=== PATIENT | female | born 1945 | race Caucasian/White ===

== ENCOUNTER → 2021-05-05 | Outpatient (CLI) | payer MEDICARE, BC ==
--- NOTE | 2021-05-05 18:22 | XR ---
EXAMINATION TYPE: XR lumbosacral spine min 4V DATE OF EXAM: 05/05/2021 CLINICAL HISTORY: Chronic low back pain TECHNIQUE: Frontal, lateral, and oblique images of the lumbar spine are obtained. COMPARISON: CT abdomen/pelvis 11/05/2017 FINDINGS: Transitional lumbosacral anatomy with partial lumbarization of the S1 body. Vertebral body heights are maintained. Mild levoscoliotic curvature of the lumbar spine centered at t he level of L1-2. Multilevel degenerative disc changes with osteophyte formation, disc height loss, and endplate sclero sis most pronounced levels of L1-2, L2-3, and L3-4. Multilevel facet arthropathy most pronounced at L4-5 and L5-S1, which appears moderate. Mild degenerative changes of the bilateral sacroiliac joints. Prostatic calcifications of the abdominal aorta. Surgical clips overlie the right upper abdomen. IMPRESSION: Moderate to advanced multilevel degenerative changes of the lumbar spine.
--- NOTE | 2021-05-05 18:24 | XR ---
EXAMINATION TYPE: XR Hip Complete RT DATE OF EXAM: 05/05/2021 CLINICAL HISTORY: Pain TECHNIQUE: AP and frogleg views of the right hip are obtained. COMPARISON: None. FINDINGS: There is no acute fracture/dislocation evident in the right hip. Mild degenerative changes of the rig ht hip. The overlying soft tissue appears unremarkable. IMPRESSION: Mild degenerative changes of the right hip.
--- NOTE | 2021-05-05 18:25 | XR ---
EXAMINATION TYPE: XR knee complete RT DATE OF EXAM: 05/05/2021 CLINICAL HISTORY: Right knee pain TECHNIQUE: Three views of the right knee are obtained. COMPARISON: None. FINDINGS: There is no acute fracture/dislocation evident in right knee. Mild degenerative changes of the right knee with joint space narrowing and osteophyte formation involving the medial and patellof emoral compartments. Tiny right knee joint effusion. The overlying soft tissue appears unremarkable. IMPRESSION: Mild degenerative changes of the right knee.
== END | disposition home or self-care (01) ==
LOC: RADXRMAIN 15:36
PROVIDERS: ATTEND Family Medicine
DX: M51.36 Other intervertebral disc degeneration, lumbar region (principal); M17.11 Unilateral primary osteoarthritis, right knee; M16.11 Unilateral primary osteoarthritis, right hip
CPT/HCPCS: 72110; 73502

== ENCOUNTER 2021-12-02 04:37 | Observation (INO) | payer MEDICARE, BC ==
[2021-12-02] MEDS ORDERED: SODIUM CHLORIDE 0.9% 500 ML 500 ML IV STA (04:56)
[2021-12-02] MEDS ORDERED: ONDANSETRON 4 MG/2 ML VIAL IVP STA (04:56)
[2021-12-02] MEDS ORDERED: ASPIRIN 81 MG PO STA (05:12)
[2021-12-02] MEDS ORDERED: NITROGLYCERIN SL TABS 0.4 MG TAB SUBLINGUAL STA (05:12)
[2021-12-02] MEDS ORDERED: MORPHINE SULFATE 4 MG/ML SYRINGE IV STA (05:12)
[2021-12-02 05:56] LABS: Basophils % (A) 1 %; Eosinophils # (A) 0.1 k/uL (0-0.7); Eosinophils % (A) 2 %; HCT 40.4 % (34.0-46.0); HGB 13.1 gm/dL (11.4-16.0); Lymphocytes # (A) 1.1 k/uL (1.0-4.8); Lymphocytes % (A) 18 %; MCH 32.1 pg (25.0-35.0); MCHC 32.5 g/dL (31.0-37.0); MCV 98.8 fL (80.0-100.0); Mean Platelet Volume 9.2; Monocytes # (A) 0.5 k/uL (0-1.0); Monocytes % (A) 8 %; Neutrophils # (A) 4.3 k/uL (1.3-7.7); Neutrophils % (A) 70 %; Platelet Count 134 k/uL (150-450); RBC 4.09 m/uL (3.80-5.40); RDW 13.7 % (11.5-15.5); WBC 6.1 k/uL (3.8-10.6)
--- NOTE | 2021-12-02 06:01 | ED ---
Chest Pain HPI - General Chief Complaint: Abdominal Pain Stated Complaint: Abdominal Pain Time Seen by Provider: 12/02/21 04:56 Source: patient, EMS Mode of arrival: EMS Limitations: no limitations - History of Present Illness MD Complaint: chest pain -: days(s) Onset: during rest Pain Location: left chest, epigastric Pain Radiation: none Severity: mild Quality: aching Consistency: constant Improves With: nothing Worsens With: nothing Anginal Symptoms: diaphoresis Treatments Prior to Arrival: none - Related Data Home Medications Medication Instructions Recorded Confirmed Dicyclomine [Bentyl] 10 mg PO TID 02/01/14 12/02/21 Furosemide [Lasix] 20 mg PO BID 02/01/14 12/02/21 Levothyroxine Sodium [Synthroid] 50 mcg PO DAILY 02/01/14 12/02/21 Warfarin [Coumadin] 5 mg PO SUWE 02/01/14 12/02/21 traMADol HCl [Ultram] 50 mg PO QID PRN 02/01/14 12/02/21 Potassium Chloride [K-Tab ER] 10 meq PO DAILY 06/10/15 12/02/21 Mag/Aluminum/Sod Bicarb/Alginc 2 - 4 tab PO DAILY PRN 11/04/17 12/02/21 [Gaviscon 80-14.2 mg Tab Chew] Propranolol HCl 80 mg PO TID 11/04/17 12/02/21 Carboxymethylcellulose Sodium 1 drop BOTH EYES DAILY PRN 12/02/21 12/02/21 [Refresh Tears] Cholecalciferol [Vitamin D3 (25 25 mcg PO DAILY 12/02/21 12/02/21 Mcg = 1000 Iu)] Losartan Potassium 50 mg PO DAILY 12/02/21 12/02/21 Multivitamins, Thera [Multivitamin 1 tab PO DAILY 12/02/21 12/02/21 (formulary)] Pantoprazole Sodium [Protonix] 40 mg PO BID 12/02/21 12/02/21 Warfarin [Coumadin] 2.5 mg PO MOTUTHFRSA 12/02/21 12/02/21 Previous Rx's Medication Instructions Recorded Enoxaparin [Lovenox] 110 mg SQ Q12H 4 Days #8 each 12/04/21 Allergies Allergy/AdvReac Type Severity Reaction Status Date / Time azithromycin Allergy Rash/Hives Verified 12/02/21 11:07 digoxin [From Lanoxin] Allergy Rapid Verified 12/02/21 11:07 Heart Rate Iodinated Contrast Media Allergy Wheezing Verified 12/02/21 11:07 [Iodinated Contrast Media - IV Dye] levofloxacin Allergy Rash/Hives Verified 12/02/21 11:07 erythromycin base AdvReac Unknown Diarrhea Verified 12/02/21 11:07 Review of Systems ROS Statement: Those systems with pertinent positive or pertinent negative responses have been documented in the HPI. ROS Other: All systems not noted in ROS Statement are negative. Constitutional: Denies: fever, chills, weakness Respiratory: Denies: cough, dyspnea Cardiovascular: Reports: as per HPI, chest pain. Denies: palpitations, orthopnea, edema, syncope Gastrointestinal: Reports: nausea. Denies: abdominal pain, vomiting, diarrhea Genitourinary: Denies: dysuria, hematuria Musculoskeletal: Denies: back pain Skin: Denies: rash Neurological: Denies: headache, weakness, numbness EKG Findings - EKG Comments: EKG Findings:: 12-lead ECG shows paced rhythm at 69 bpm with PVC. - EKG Results: EKG: interpreted by JAYLOND Past Medical History Past Medical History: Atrial Fibrillation, Eye Disorder, GERD/Reflux, Hypertension, Osteoarthritis (OA), Thyroid Disorder Additional Past Medical History / Comment(s): POST MENOPAUSAL VAGINAL BLEEDING,MEDTRONIC PACEMAKER/DEFIBRILLATOR (2006), FX LEFT FEMUR (2008), VERTIGO, HX OF RHEUMATIC HEART DISEASE, CHRONIC SINUSITIS, IBS, PAIN IN BACK, RIGHT HIP AND KNEES,HEMORRHOIDS, CATARACTS History of Any Multi-Drug Resistant Organisms: None Reported Past Surgical History: AICD, Cholecystectomy, Orthopedic Surgery, Pacemaker Additional Past Surgical History / Comment(s): D & C. ORIF LT FEMUR,ARTIFICIAL MITRAL & AORTIC HEART VALVES (1978), PACEMAKER /AICD (2006) AND BATTERY CHANGE (2012). LT and RT EYE CATARACT REMOVED Past Anesthesia/Blood Transfusion Reactions: Motion Sickness, Postoperative Nausea & Vomiting (PONV) Type of Cardiac Device: Permanent Pacemaker, AICD Device Placement Date:: 2006 Past Psychological History: Anxiety Past Alcohol Use History: None Reported Past Drug Use History: None Reported - Past Family History Father Family Medical History: Myocardial Infarction (NH) Brother(s) Family Medical History: Cancer Additional Family Medical History / Comment(s): PROSTATE CA Mother Family Medical History: Deep Vein Thrombosis (DVT), Osteoarthritis (OA) Additional Family Medical History / Comment(s): PARKINSON'S,SCHIZOPHRENIC General Exam Limitations: no limitations General appearance: alert, in no apparent distress Head exam: Present: atraumatic, normocephalic Eye exam: Present: normal appearance. Absent: scleral icterus, conjunctival in jection Neck exam: Present: normal inspection Respiratory exam: Present: normal lung sounds bilaterally. Absent: respiratory distress, wheezes, rales, rhonchi, stridor Cardiovascular Exam: Present: regular rate, normal rhythm, normal heart sounds. Absent: systolic murmur, diastolic murmur, rubs, gallop GI/Abdominal exam: Present: soft. Absent: distended, tenderness, guarding, rebound, rigid, mass Extremities exam: Present: normal inspection, normal capillary refill. Absent: pedal edema, calf tenderness Back exam: Present: normal inspection. Absent: CVA tenderness (R), CVA tenderness (L) Neurological exam: Present: alert Skin exam: Present: warm, dry, intact, normal color. Absent: rash Course Vital Signs 12/02/21 12/02/21 12/02/21 04:47 05:42 06:02 Temperature 98.1 F Pulse Rate 85 72 60 Respiratory 20 18 18 Rate Blood Pressure 151/88 132/81 111/76 O2 Sat by Pulse 96 97 100 Oximetry 12/02/21 12/02/21 07:00 08:35 Temperature 98.1 F Pulse Rate 77 Respiratory 18 Rate Blood Pressure 125/68 O2 Sat by Pulse 92 L 93 L Oximetry Disposition Clinical Impression: Atypical chest pain Disposition: ADMITTED IP TO THIS HOSP Condition: Stable Is patient prescribed a controlled substance at d/c from ED?: No
[2021-12-02 06:13] LABS: Albumin 3.8 g/dL (3.5-5.0); Calcium 8.5 mg/dL (8.4-10.2); Potassium 3.6 mmol/L (3.5-5.1); Total Bilirubin 1.1 mg/dL (0.2-1.3); Total Protein 6.7 g/dL (6.3-8.2)
[2021-12-02 06:58] LABS: INR 3.2 (<1.2)
--- NOTE | 2021-12-02 07:27 | XR ---
EXAMINATION TYPE: XR chest 2V DATE OF EXAM: 12/02/2021 COMPARISON: 11/04/2017 HISTORY: 76 year-old female epigastric and lower left chest pain TECHNIQUE: AP and lateral views FINDINGS: Left anterior chest wall AICD generator with right ventricular and coronary sinus leads. 2 cardiac va lves are demonstrated. Median sternotomy wires. Hypoventilatory changes with crowded vascular marking s and interstitial prominence. Retained epicardial pacer leads. The heart remains enlarged. Lung volu mes are very low with elevated hemidiaphragms. No pleural effusion seen on lateral view. IMPRESSION: Cardiomegaly and marked hypoventilatory changes with very low lung volumes. Interstitial prominence m ay be due to crowded vascular markings. Correlate for mild pulmonary vascular congestion.
[2021-12-02] MEDS ORDERED: NITROGLYCERIN SL TABS 0.4 MG TAB SUBLINGUAL PRN (07:53)
[2021-12-02 07:54] LABS: Appearance,Urine Clear (Clear); Bacteria,Urine Rare /hpf; Bilirubin,Urine Negative (Negative); Blood,Urine Negative (Negative); Color,Urine Yellow; Glucose,Urine (UA) Negative (Negative); Hyaline Casts,Urine 4 /lpf (0-2); Ketones,Urine Negative (Negative); Leukocyte Esterase,Urine Small (Negative); Mucus,Urine Rare /hpf; Nitrite,Urine Negative (Negative); Protein,Urine 1+ (Negative); RBC,Urine 1 /hpf (0-5); Specific Gravity,Urine 1.011 (1.001-1.035); Squamous Epithelial Cell,Urine 2 /hpf (0-4); Urobilinogen,Urine <2.0 mg/dL (<2.0); WBC,Urine 6 /hpf (0-5)
[2021-12-02] MEDS: SODIUM CHLORIDE 0.9% 1,000 ML IV SCH (09:29)
--- NOTE | 2021-12-02 10:52 | P.HPIM ---
History of Present Illness This is a pleasant 76 years old female with past medical history of hypothyroidism, atrial fibrillation on Coumadin,GERD/Reflux, Hypertension, Osteoarthritis , vertigo, chronic sinusitis, irritable bowel syndrome, chronic pain of the neck. Cataract, status post AICD. Status post pacemaker. She is a patient of Dr. Burkett. Senior [employer] Engineer Dr. Tucker and GI Dr. Garner but she hasn't seen her for a water Presents because of epigastric pain and chest pain, she states she had these 2 pains for the last 2 days. She has history of IBS and she got abdominal pain frequently but lasts usually 24 hours, last time she had such pain was about 2 weeks ago, this time her epigastric pain lasted more than 48 hours so she got concerned and she decided to come to emergency room. She feels like her epigastric pain like pressure and burning, about 2/10 in severity, worse with walking and associated with diarrhea but since yesterday morning she had no bowel movement. She denies nausea or vomiting. No urinary symptoms. She is also complaining from left upper chest pain also of 2 days' duration about 3/10 in severity also increased by walking, feels like her being with of dictation palpitation. She has a little dizziness which is nonspecific, no vertigo, no presyncope, no ear or eye problems. No fever. No weakness or numbness. She denies smoking, alcohol or illicit drugs. She states last EGD/colonoscopy was about 3-4 years ago. Vitals stable and patient afebrile CBC are unremarkable. INR 3.2. BNP and liver enzymes are unremarkable. Urinalysis with 1+ glucose, small leukocyte esterase. EGD and colonoscopy in 2018: 1. Small sliding hiatal hernia with no obvious esophagitis or complicated reflux disease. 2. Mild gastritis. 3. Normal colon exam. in Emergency room she received aspirin 325 mg, IV fluids and nitroglycerin Review of Systems CONSTITUTIONAL: No fever, no malaise, no fatigue. HEENT: No recent visual problems or hearing problems. Denied any sore throat. CARDIOVASCULAR: No orthopnea, PND, no palpitations, no syncope. PULMONARY: No chest wall tenderness, no cough, no hemoptysis. GASTROINTESTINAL: No diarrhea, no nausea, no vomiting, Normoactive bowel sounds. NEUROLOGICAL: No headaches, no weakness, no numbness. HEMATOLOGICAL: Denies any bleeding or petechiae. GENITOURINARY: Denies any burning micturition, frequency, or urgency. MUSCULOSKELETAL/RHEUMATOLOGICAL: Denies any joint pain, swelling, or any muscle pain. ENDOCRINE: Denies any polyuria or polydipsia. Past Medical History Past Medical History: Atrial Fibrillation, Eye Disorder, GERD/Reflux, Hypertension, Osteoarthritis (OA), Thyroid Disorder Additional Past Medical History / Comment(s): POST MENOPAUSAL VAGINAL BLEEDING,MEDTRONIC PACEMAKER/DEFIBRILLATOR (2006), FX LEFT FEMUR (2008), VERTIGO, HX OF RHEUMATIC HEART DISEASE, CHRONIC SINUSITIS, IBS, PAIN IN BACK, RIGHT HIP AND KNEES,HEMORRHOIDS, CATARACTS History of Any Multi-Drug Resistant Organisms: None Reported Past Surgical History: AICD, Cholecystectomy, Orthopedic Surgery, Pacemaker Additional Past Surgical History / Comment(s): D & C. ORIF LT FEMUR,ARTIFICIAL MITRAL & AORTIC HEART VALVES (1978), PACEMAKER /AICD (2006) AND BATTERY CHANGE (2012). LT and RT EYE CATARACT REMOVED Past Anesthesia/Blood Transfusion Reactions: Motion Sickness, Postoperative Nausea & Vomiting (PONV) Type of Cardiac Device: Permanent Pacemaker, AICD Device Placement Date:: 2006 Past Psychological History: Anxiety Past Alcohol Use History: None Reported Past Drug Use History: None Reported - Past Family History Father Family Medical History: Myocardial Infarction (PR) Brother(s) Family Medical History: Cancer Additional Family Medical History / Comment(s): PROSTATE CA Mother Family Medical History: Deep Vein Thrombosis (DVT), Osteoarthritis (OA) Additional Family Medical History / Comment(s): PARKINSON'S,SCHIZOPHRENIC Medications and Allergies Home Medications Medication Instructions Recorded Confirmed Type Bromelain 1 tab PO DAILY PRN 02/01/14 11/04/17 History Dicyclomine [Bentyl] 10 mg PO TID 02/01/14 11/04/17 History Furosemide [Lasix] 20 mg PO AC-LUNCH 02/01/14 11/04/17 History Levothyroxine Sodium [Synthroid] 50 mcg PO QAM 02/01/14 11/04/17 History Losartan [Cozaar] 50 mg PO 1200 02/01/14 11/04/17 History Warfarin [Coumadin] 2.5 mg PO SUTUTHSA 02/01/14 11/04/17 History Warfarin [Coumadin] 5 mg PO MOWEFR 02/01/14 11/04/17 History traMADol HCl [Ultram] 50 mg PO QID 02/01/14 11/04/17 History Docusate [Colace] 100 mg PO DAILY 06/10/15 11/04/17 History Fluticasone Nasal [place] [Flonase 1 spray EA NOSTRIL DAILY PRN 06/10/15 11/04/17 History Nasal [place]] Potassium Chloride [K-Tab ER] 10 meq PO DAILY 06/10/15 11/04/17 History L.acidoph,Paracasei, B.lactis 1 cap PO DAILY PRN 05/07/16 11/04/17 History [Probiotic] Mag/Aluminum/Sod Bicarb/Alginc 2 - 4 tab PO PCHS 11/04/17 11/04/17 History [Gaviscon 80-14.2 mg Tab Chew] Propranolol HCl 80 mg PO TID 11/04/17 11/04/17 History Enoxaparin [Lovenox] 100 mg SQ Q12H #12 syr 11/09/17 Rx Pantoprazole Sodium [Protonix] 40 mg PO DAILY 14 Days tablet. 11/09/17 Rx Allergies Allergy/AdvReac Type Severity Reaction Status Date / Time azithromycin Allergy Rash/Hives Verified 11/04/17 08:01 digoxin [From Lanoxin] Allergy Rapid Verified 11/04/17 08:01 Heart Rate Iodinated Contrast Media Allergy Wheezing Verified 11/04/17 08:01 [Iodinated Contrast Media - IV Dye] levofloxacin Allergy Rash/Hives Verified 11/04/17 08:01 erythromycin base AdvReac Unknown Diarrhea Verified 11/04/17 08:01 Physical Exam Vitals: Vital Signs Temp Pulse Resp BP Pulse Ox 12/02/21 07:00 92 L 12/02/21 06:02 60 18 111/76 100 12/02/21 05:42 72 18 132/81 97 12/02/21 04:47 98.1 F 85 20 151/88 96 Intake and Output 12/01/21 12/02/21 12/02/21 22:59 06:59 14:59 Other: Weight 113.398 kg GENERAL: The patient is alert and oriented x3, not in any acute distress. Well developed, well nourished. HEENT: Pupils are round and equally reacting to light. EOMI. No scleral icterus. No conjunctival pallor. Normocephalic, atraumatic. No pharyngeal erythema. No thyromegaly. CARDIOVASCULAR: S1 and S2 present. No murmurs, rubs, or gallops. PULMONARY: Chest is clear to auscultation, no wheezing or crackles. ABDOMEN: Soft, mild epigastric tenderness, nondistended, normoactive bowel sounds. No palpable organomegaly. MUSCULOSKELETAL: No joint swelling or deformity. EXTREMITIES: No cyanosis, clubbing, or pedal edema. NEUROLOGICAL: Gross neurological examination did not reveal any focal deficits. SKIN: No rashes. No petechiae Results CBC & Chem 7: 12/02/21 05:30 12/02/21 05:30 Labs: Abnormal Lab Results - Last 24 Hours (Table) 12/02/21 12/02/21 12/02/21 Range/Units 05:30 05:30 05:30 Plt Count 134 L (150-450) k/uL PT 32.0 H (9.0-12.0) sec INR 3.2 H (<1.2) Glucose 127 H (74-99) mg/dL Urine Protein (Negative) Ur Leukocyte Esterase (Negative) Urine WBC (0-5) /hpf Urine Bacteria (None) /hpf Hyaline Casts (0-2) /lpf Urine Mucus (None) /hpf 12/02/21 Range/Units 07:41 Plt Count (150-450) k/uL PT (9.0-12.0) sec INR (<1.2) Glucose (74-99) mg/dL Urine Protein 1+ H (Negative) Ur Leukocyte Esterase Small H (Negative) Urine WBC 6 H (0-5) /hpf Urine Bacteria Rare H (None) /hpf Hyaline Casts 4 H (0-2) /lpf Urine Mucus Rare H (None) /hpf Assessment and Plan Assessment: Epigastric pain Chest pain rule out cardiac causes History of irritable bowel syndrome History of mitral and aortic valve replacement History of GERD Chronic atrial fibrillation on Coumadin 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 Continue same treatment. Continue with symptomatic treatment. Resume home medication. Monitor lytes and vitals. DVT and GI prophylaxis. Further recommendations depends on the clinical course of the patient DVT prophylaxis: On Coumadin GI Prophylaxis: Pepcid PT/OT: Pending Prognosis is guarded
[2021-12-02] MEDS: LEVOTHYROXINE 50 MCG TAB PO SCH (11:26)
[2021-12-02] MEDS: LOSARTAN 50 MG TAB PO SCH (12:38)
--- NOTE | 2021-12-02 12:57 | P.GSCN ---
History of Present Illness Consult date: 12/02/21 Reason for Consult: Epigastric pain History of present illness: This a 76-year-old female who presents today for epigastric pain. Patient has history of irritable bowel syndrome. Patient states that she really gets epigastric pain. She is a previous history of cholecystectomy. Past Medical History Past Medical History: Atrial Fibrillation, Eye Disorder, GERD/Reflux, Hypertension, Osteoarthritis (OA), Thyroid Disorder Additional Past Medical History / Comment(s): POST MENOPAUSAL VAGINAL BLEEDING,MEDTRONIC PACEMAKER/DEFIBRILLATOR (2006), FX LEFT FEMUR (2008), VERTIGO, HX OF RHEUMATIC HEART DISEASE, CHRONIC SINUSITIS, IBS, PAIN IN BACK, RIGHT HIP AND KNEES,HEMORRHOIDS, CATARACTS History of Any Multi-Drug Resistant Organisms: None Reported Past Surgical History: AICD, Cholecystectomy, Orthopedic Surgery, Pacemaker Additional Past Surgical History / Comment(s): D & C. ORIF LT FEMUR,ARTIFICIAL MITRAL & AORTIC HEART VALVES (1978), PACEMAKER /AICD (2006) AND BATTERY CHANGE (2012). LT and RT EYE CATARACT REMOVED Past Anesthesia/Blood Transfusion Reactions: Motion Sickness, Postoperative Nausea & Vomiting (PONV) Type of Cardiac Device: Permanent Pacemaker, AICD Device Placement Date:: 2006 Past Psychological History: Anxiety Past Alcohol Use History: None Reported Past Drug Use History: None Reported - Past Family History Father Family Medical History: Myocardial Infarction (NH) Brother(s) Family Medical History: Cancer Additional Family Medical History / Comment(s): PROSTATE CA Mother Family Medical History: Deep Vein Thrombosis (DVT), Osteoarthritis (OA) Additional Family Medical History / Comment(s): PARKINSON'S,SCHIZOPHRENIC Medications and Allergies Home Medications Medication Instructions Recorded Confirmed Type Dicyclomine [Bentyl] 10 mg PO TID 02/01/14 12/02/21 History Furosemide [Lasix] 20 mg PO BID 02/01/14 12/02/21 History Levothyroxine Sodium [Synthroid] 50 mcg PO DAILY 02/01/14 12/02/21 History Warfarin [Coumadin] 5 mg PO SUWE 02/01/14 12/02/21 History traMADol HCl [Ultram] 50 mg PO QID PRN 02/01/14 12/02/21 History Potassium Chloride [K-Tab ER] 10 meq PO DAILY 06/10/15 12/02/21 History Mag/Aluminum/Sod Bicarb/Alginc 2 - 4 tab PO DAILY PRN 11/04/17 12/02/21 History [Gaviscon 80-14.2 mg Tab Chew] Propranolol HCl 80 mg PO TID 11/04/17 12/02/21 History Carboxymethylcellulose Sodium 1 drop BOTH EYES DAILY PRN 12/02/21 12/02/21 History [Refresh Tears] Cholecalciferol [Vitamin D3 (25 25 mcg PO DAILY 12/02/21 12/02/21 History Mcg = 1000 Iu)] Losartan Potassium 50 mg PO DAILY 12/02/21 12/02/21 History Multivitamins, Thera [Multivitamin 1 tab PO DAILY 12/02/21 12/02/21 History (formulary)] Pantoprazole Sodium [Protonix] 40 mg PO BID 12/02/21 12/02/21 History Warfarin [Coumadin] 2.5 mg PO MOTUTHFRSA 12/02/21 12/02/21 History Allergies Allergy/AdvReac Type Severity Reaction Status Date / Time azithromycin Allergy Rash/Hives Verified 12/02/21 11:07 digoxin [From Lanoxin] Allergy Rapid Verified 12/02/21 11:07 Heart Rate Iodinated Contrast Media Allergy Wheezing Verified 12/02/21 11:07 [Iodinated Contrast Media - IV Dye] levofloxacin Allergy Rash/Hives Verified 12/02/21 11:07 erythromycin base AdvReac Unknown Diarrhea Verified 12/02/21 11:07 Surgical - Exam Vital Signs Temp Pulse Resp BP Pulse Ox 98.1 F 85 20 151/88 96 12/02/21 04:47 12/02/21 04:47 12/02/21 04:47 12/02/21 04:47 12/02/21 04:47 - General well developed, well nourished, no distress - Eyes PERRL - ENT normal pinna - Neck no masses - Respiratory normal expansion - Cardiovascular Rhythm: regular - Abdomen Abdomen: soft, non tender Results - Labs 12/02/21 05:30 12/02/21 05:30 Abnormal Lab Results - Last 24 Hours (Table) 12/02/21 12/02/21 12/02/21 Range/Units 05:30 05:30 05:30 Plt Count 134 L (150-450) k/uL PT 32.0 H (9.0-12.0) sec INR 3.2 H (<1.2) Glucose 127 H (74-99) mg/dL Urine Protein (Negative) Ur Leukocyte Esterase (Negative) Urine WBC (0-5) /hpf Urine Bacteria (None) /hpf Hyaline Casts (0-2) /lpf Urine Mucus (None) /hpf 12/02/21 Range/Units 07:41 Plt Count (150-450) k/uL PT (9.0-12.0) sec INR (<1.2) Glucose (74-99) mg/dL Urine Protein 1+ H (Negative) Ur Leukocyte Esterase Small H (Negative) Urine WBC 6 H (0-5) /hpf Urine Bacteria Rare H (None) /hpf Hyaline Casts 4 H (0-2) /lpf Urine Mucus Rare H (None) /hpf Diabetes panel 12/02/21 Range/Units 05:30 Sodium 138 (137-145) mmol/L Potassium 3.6 (3.5-5.1) mmol/L Chloride 103 (98-107) mmol/L Carbon Dioxide 27 (22-30) mmol/L BUN 16 (7-17) mg/dL Creatinine 0.94 (0.52-1.04) mg/dL Glucose 127 H (74-99) mg/dL Calcium 8.5 (8.4-10.2) mg/dL AST 36 (14-36) U/L ALT 20 (4-34) U/L Alkaline Phosphatase 76 (38-126) U/L Total Protein 6.7 (6.3-8.2) g/dL Albumin 3.8 (3.5-5.0) g/dL Calcium panel 12/02/21 Range/Units 05:30 Calcium 8.5 (8.4-10.2) mg/dL Albumin 3.8 (3.5-5.0) g/dL Pituitary panel 12/02/21 Range/Units 05:30 Sodium 138 (137-145) mmol/L Potassium 3.6 (3.5-5.1) mmol/L Chloride 103 (98-107) mmol/L Carbon Dioxide 27 (22-30) mmol/L BUN 16 (7-17) mg/dL Creatinine 0.94 (0.52-1.04) mg/dL Glucose 127 H (74-99) mg/dL Calcium 8.5 (8.4-10.2) mg/dL Adrenal panel 12/02/21 Range/Units 05:30 Sodium 138 (137-145) mmol/L Potassium 3.6 (3.5-5.1) mmol/L Chloride 103 (98-107) mmol/L Carbon Dioxide 27 (22-30) mmol/L BUN 16 (7-17) mg/dL Creatinine 0.94 (0.52-1.04) mg/dL Glucose 127 H (74-99) mg/dL Calcium 8.5 (8.4-10.2) mg/dL Total Bilirubin 1.1 (0.2-1.3) mg/dL AST 36 (14-36) U/L ALT 20 (4-34) U/L Alkaline Phosphatase 76 (38-126) U/L Total Protein 6.7 (6.3-8.2) g/dL Albumin 3.8 (3.5-5.0) g/dL Assessment and Plan Assessment: History of epigastric pain. We'll perform EGD on Saturday.
[2021-12-02] MEDS: FUROSEMIDE 20 MG TAB PO SCH (15:40)
[2021-12-02] MEDS: traMADol 50 MG TAB PO PRN (15:40)
[2021-12-02] MEDS: DICYCLOMINE 10 MG CAP PO PRN (15:41)
[2021-12-02] MEDS ORDERED: PROPRANOLOL 40 MG TAB PO SCH (16:00)
[2021-12-02] MEDS: PROPRANOLOL 40 MG TAB PO SCH (20:28)
[2021-12-02] MEDS: PANTOPRAZOLE 40 MG TABLET PO SCH (20:28)
[2021-12-03] MEDS: traMADol 50 MG TAB PO PRN ×2 (04:15→20:51)
[2021-12-03] MEDS: LEVOTHYROXINE 50 MCG TAB PO SCH (05:18)
[2021-12-03 05:56] LABS: INR 2.8 (<1.2)
[2021-12-03] MEDS: PANTOPRAZOLE 40 MG TABLET PO SCH ×2 (08:31→20:51)
[2021-12-03] MEDS: ASPIRIN 325 MG TAB PO SCH (08:31)
[2021-12-03] MEDS: PROPRANOLOL 40 MG TAB PO SCH ×2 (08:31→20:52)
[2021-12-03] MEDS: FUROSEMIDE 20 MG TAB PO SCH ×2 (08:31→15:16)
[2021-12-03] MEDS: SODIUM CHLORIDE 0.9% 1,000 ML IV SCH (08:32)
[2021-12-03 09:11] LABS: Chol/HDL Ratio 2.34 Ratio; LDL Cholesterol,Calculated 60.6 mg/dL (0.0-131.0); VLDL Calculation 16.18 mg/dL (5.00-40.00)
[2021-12-03 09:15] LABS: Basophils # (A) 0.04 X 10*3/uL (0.00-0.10); Basophils % (A) 0.9 %; Eosinophils # (A) 0.11 X 10*3/uL (0.04-0.35); Eosinophils % (A) 2.5 %; HCT 38.3 % (37.2-46.3); HGB 11.7 g/dL (12.0-15.0); Immature Grans, Automated 0.5 %; Lymphocytes # (A) 1.11 X 10*3/uL (0.90-5.00); Lymphocytes % (A) 25.3 %; MCH 30.8 pg (27.0-32.0); MCHC 30.5 g/dL (32.0-37.0); MCV 100.8 fL (80.0-97.0); Mean Platelet Volume 12.3 fL (9.5-12.2); Monocytes # (A) 0.71 X 10*3/uL (0.20-1.00); Monocytes % (A) 16.2 %; NRBC Per 100 WBC 0 /100 WBCS (0.0-0.0); Neutrophils % (A) 54.6 %; Platelet Count 118 X 10*3/uL (140-440); RDW 13.8 % (11.5-14.5); WBC 4.39 X 10*3/uL (4.50-10.00)
[2021-12-03] MEDS: DICYCLOMINE 10 MG CAP PO PRN ×2 (09:18→20:52)
--- NOTE | 2021-12-03 10:10 | P.PN ---
Progress Note - Text Progress Note Date: 12/03/21 Patient's complaints of epigastric pain. It is better than yesterday. On exam vital signs are stable. Abdomen soft. Patient for EGD in the a.m.
--- NOTE | 2021-12-03 10:13 | P.CRDCN ---
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 She follows with Dr Tucker. She states that yesterday she started noticing pain under her left breast as well as somewhat anterior chest. She denies any association with exertion, diaphoresis, nausea or shortness breath. "Overall she was just feeling somewhat "bad "and therefore presented to emergency department. Troponin is noted to be normal 3. Patient is being evaluated for possible EGD. It is somewhat reproducible in the epigastric region. She denies any hematoch ezia or melena. Currently the chest pain has improved. She admits she is scheduled for a echo in a few months in the office. Her last stress test she believes his been a few years ago. EKG shows atrial fibrillation with ventricular paced rhythm. REVIEW OF SYSTEMS At the time of my exam: CONSTITUTIONAL: Denies fever or chills. CARDIOVASCULAR:+chest pain, +chronic shortness of breath, no orthopnea, PND or palpitations. RESPIRATORY: Denies cough. GASTROINTESTINAL: +abdominal pain, no diarrhea, constipation, nausea or vomiting. MUSCULOSKELETAL: Denies myalgias. NEUROLOGIC: Denies numbness, tingling or weakness. ENDOCRINE: Denies fatigue, weight change, polydipsia or polyurina. GENITOURINARY: Denies burning, hematuria or urgency with micturation. HEMATOLOGIC: Denies history of anemia or bleeding. PHYSICAL EXAMINATION Vital signs reviewed. CONSTITUTIONAL: No apparent distress. HEENT: Head is normocephalic. Pupils are equal, round. Sclerae anicteric. Mucous membranes of the mouth are moist. No JVD. No carotid bruit. CHEST EXAMINATION: Lungs are clear to auscultation. No chest wall tenderness is noted on palpation or with deep breathing. HEART EXAMINATION: Regular rate and rhythm. S1, S2 heard. No murmurs, gallops or rub. ABDOMEN: Soft, nontender. Positive bowel sounds. EXTREMITIES: 2+ peripheral pulses, +trace lower extremity edema and no calf tenderness. NEUROLOGIC EXAMINATION: Patient is awake, alert and oriented x3. ASSESSMENT 1. Atypical chest pain and appears more epigastric related to GI source. Reproducible in the epigastric region. Troponins normal 3 and do not suspect acute coronary syndrome. 2. Chronic atrial fibrillation 3. History of nonischemic cardiopathy EF 40-45% status post biventricular AICD 4. Coumadin coagulopathy 5. History of aortic and mitral mechanical valve replacement 6. Chronic systolic heart failure currently appears euvolemic PLAN Patient's epigastric and chest pain does not appear cardiac in nature. Appears more GI related. She does have irritable bowel syndrome and being evaluated by surgeons for possible endoscopy. Troponin is normal 3 and do not suspect acute coronary syndrome. We will check 2-D echo to evaluate left ventricular function and valvular function. Appears euvolemic and no significant angina-type symptoms and patient is cleared for endoscopy from a cardiology standpoint. Recommend proceeding with EGD on Coumadin and if unable patient would need bridging with heparin or Lovenox given mechanical mitral and aortic valve. Further recommendations follow. Past Medical History Past Medical History: Atrial Fibrillation, Eye Disorder, GERD/Reflux, Hyp ertension, Osteoarthritis (OA), Thyroid Disorder Additional Past Medical History / Comment(s): POST MENOPAUSAL VAGINAL BLEEDING,MEDTRONIC PACEMAKER/DEFIBRILLATOR (2006), FX LEFT FEMUR (2008), VERTIGO, HX OF RHEUMATIC HEART DISEASE, CHRONIC SINUSITIS, IBS, PAIN IN BACK, RIGHT HIP AND KNEES,HEMORRHOIDS, CATARACTS History of Any Multi-Drug Resistant Organisms: None Reported Past Surgical History: AICD, Cholecystectomy, Orthopedic Surgery, Pacemaker Additional Past Surgical History / Comment(s): D & C. ORIF LT FEMUR,ARTIFICIAL MITRAL & AORTIC HEART VALVES (1978), PACEMAKER /AICD (2006) AND BATTERY CHANGE (2012). LT and RT EYE CATARACT REMOVED Past Anesthesia/Blood Transfusion Reactions: Motion Sickness, Postoperative Nausea & Vomiting (PONV) Type of Cardiac Device: Permanent Pacemaker, AICD Device Placement Date:: 2006 Past Psychological History: Anxiety Past Alcohol Use History: None Reported Past Drug Use History: None Reported - Past Family History Father Family Medical History: Myocardial Infarction (IN) Brother(s) Family Medical History: Cancer Additional Family Medical History / Comment(s): PROSTATE CA Mother Family Medical History: Deep Vein Thrombosis (DVT), Osteoarthritis (OA) Additional Family Medical History / Comment(s): PARKINSON'S,SCHIZOPHRENIC Medications and Allergies Home Medications Medication Instructions Recorded Confirmed Type Dicyclomine [Bentyl] 10 mg PO TID 02/01/14 12/02/21 History Furosemide [Lasix] 20 mg PO BID 02/01/14 12/02/21 History Levothyroxine Sodium [Synthroid] 50 mcg PO DAILY 02/01/14 12/02/21 History Warfarin [Coumadin] 5 mg PO SUWE 02/01/14 12/02/21 History traMADol HCl [Ultram] 50 mg PO QID PRN 02/01/14 12/02/21 History Potassium Chloride [K-Tab ER] 10 meq PO DAILY 06/10/15 12/02/21 History Mag/Aluminum/Sod Bicarb/Alginc 2 - 4 tab PO DAILY PRN 11/04/17 12/02/21 History [Gaviscon 80-14.2 mg Tab Chew] Propranolol HCl 80 mg PO TID 11/04/17 12/02/21 History Carboxymethylcellulose Sodium 1 drop BOTH EYES DAILY PRN 12/02/21 12/02/21 History [Refresh Tears] Cholecalciferol [Vitamin D3 (25 25 mcg PO DAILY 12/02/21 12/02/21 History Mcg = 1000 Iu)] Losartan Potassium 50 mg PO DAILY 12/02/21 12/02/21 History Multivitamins, Thera [Multivitamin 1 tab PO DAILY 12/02/21 12/02/21 History (formulary)] Pantoprazole Sodium [Protonix] 40 mg PO BID 12/02/21 12/02/21 History Warfarin [Coumadin] 2.5 mg PO MOTUTHFRSA 12/02/21 12/02/21 History Allergies Allergy/AdvReac Type Severity Reaction Status Date / Time azithromycin Allergy Rash/Hives Verified 12/02/21 11:07 digoxin [From Lanoxin] Allergy Rapid Verified 12/02/21 11:07 Heart Rate Iodinated Contrast Media Allergy Wheezing Verified 12/02/21 11:07 [Iodinated Contrast Media - IV Dye] levofloxacin Allergy Rash/Hives Verified 12/02/21 11:07 erythromycin base AdvReac Unknown Diarrhea Verified 12/02/21 11:07 Physical Exam Vitals: Vital Signs Temp Pulse Pulse Resp BP Pulse Ox 12/03/21 07:00 98.3 F 67 18 122/66 93 L 12/03/21 01:52 97.7 F 65 16 94/59 96 12/02/21 18:55 98.0 F 71 16 104/64 96 12/02/21 13:56 98.1 F 68 16 102/65 95 12/02/21 12:20 106/69 Intake and Output 12/02/21 12/03/21 12/03/21 22:59 06:59 14:59 Intake Total 180 Balance 180 Intake: Oral 180 Other: # Voids 1 1 # Bowel Movements 0 Results 12/03/21 05:08 12/02/21 05:30 Cardiac Enzymes 12/02/21 Range/Units 11:18 Troponin I 0.018 (0.000-0.034) ng/mL Coagulation 12/03/21 Range/Units 05:08 PT 28.0 H (9.0-12.0) sec Lipids 12/03/21 Range/Units 05:08 Triglycerides 80.90 (0.00-149.00) mg/dL Cholesterol 134.00 (0.00-200.00) mg/dL HDL Cholesterol 57.20 (40.00-60.00) mg/dL Cholesterol/HDL Ratio 2.34 Ratio CBC 12/03/21 Range/Units 05:08 WBC 4.39 L (4.50-10.00) X 10*3/uL RBC 3.80 L (4.10-5.20) X 10*6/uL Hgb 11.7 L (12.0-15.0) g/dL Hct 38.3 (37.2-46.3) % Plt Count 118 L (140-440) X 10*3/uL Current Medications Generic Name Dose Route Start Last Admin Trade Name Freq PRN Reason Stop Dose Admin Aspirin 325 mg 12/03/21 09:00 12/03/21 08:31 Aspirin 325 Mg Tab PO 325 mg DAILY COLLEEN Administration Dicyclomine HCl 10 mg 12/02/21 11:59 12/03/21 09:18 Dicyclomine 10 Mg Cap PO 10 mg TID PRN Administration Abdominal Distention Furosemide 20 mg 12/02/21 16:00 12/03/21 08:31 Furosemide 20 Mg Tab PO 20 mg BID@0900,1600 COLLEEN Administration Sodium Chloride 1,000 mls @ 20 mls/hr 12/02/21 08:00 12/03/21 08:32 Saline 0.9% IV Not Given .Q24H COLLEEN Levothyroxine Sodium 50 mcg 05/14/22 06:30 12/03/21 05:18 Levothyroxine 50 Mcg Tab PO 50 mcg QAM@0630 COLELEN Administration Losartan Potassium 50 mg 12/02/21 12:00 12/02/21 12:38 Losartan 50 Mg Tab PO Not Given 1200 [facility] Nitroglycerin 0.4 mg 12/02/21 07:53 Nitroglycerin Sl Tabs 0.4 Mg Tab SUBLINGUAL Q5M PRN Chest Pain Pantoprazole Sodium 40 mg 12/02/21 21:00 12/03/21 08:31 Pantoprazole 40 Mg Tablet PO 40 mg BID COLLEEN Administration Propranolol HCl 40 mg 12/02/21 21:00 12/03/21 08:31 Propranolol 40 Mg Tab PO 40 mg BID COLLEEN Administration Tramadol HCl 50 mg 12/02/21 11:59 12/03/21 04:15 Tramadol 50 Mg Tab PO 50 mg QID PRN Administration Pain Intake and Output 12/02/21 12/03/21 12/03/21 22:59 06:59 14:59 Intake Total 180 Balance 180 Intake: Oral 180 Other: # Voids 1 1 # Bowel Movements 0 12/03/21 05:08 12/02/21 05:30
[2021-12-03] MEDS: LOSARTAN 50 MG TAB PO SCH (12:41)
[2021-12-04] MEDS: LEVOTHYROXINE 50 MCG TAB PO SCH (05:37)
[2021-12-04 08:39] LABS: INR 2.1 (<1.2); Prothrombin Time 20.8 sec (9.0-12.0)
[2021-12-04] MEDS: SODIUM CHLORIDE 0.9% 1,000 ML IV SCH (09:07)
--- NOTE | 2021-12-04 09:09 | P.PN ---
Subjective This is a pleasant 76 years old female with past medical history of hypothyroidism, atrial fibrillation on Coumadin,GERD/Reflux, Hypertension, Osteo arthritis , vertigo, chronic sinusitis, irritable bowel syndrome, chronic pain of the neck. Cataract, status post AICD. Status post pacemaker. She is a patient of Dr. Burkett. Putty Maker Dr. Tucker and GI Dr. Garner but she hasn't seen her for a water Presents because of epigastric pain and chest pain, she states she had these 2 pains for the last 2 days. She has history of IBS and she got abdominal pain frequently but lasts usually 24 hours, last time she had such pain was about 2 weeks ago, this time her epigastric pain lasted more than 48 hours so she got concerned and she decided to come to emergency room. She feels like her epigastric pain like pressure and burning, about 2/10 in severity, worse with walking and associated with diarrhea but since yesterday morning she had no bowel movement. She denies nausea or vomiting. No urinary symptoms. She is also complaining from left upper chest pain also of 2 days' duration about 3/10 in severity also increased by walking, feels like her being with of dictation palpitation. She has a little dizziness which is nonspecific, no vertigo, no presyncope, no ear or eye problems. No fever. No weakness or numbness. She denies smoking, alcohol or illicit drugs. She states last EGD/colonoscopy was about 3-4 years ago. Vitals stable and patient afebrile CBC are unremarkable. INR 3.2. BNP and liver enzymes are unremarkable. Urinalysis with 1+ glucose, small leukocyte esterase. EGD and colonoscopy in 2018: 1. Small sliding hiatal hernia with no obvious esophagitis or complicated reflux disease. 2. Mild gastritis. 3. Normal colon exam. in Emergency room she received aspirin 325 mg, IV fluids and nitroglycerin 12/03/2021 Patient with no central chest pain or epigastric pain this morning where she had the symptoms on presentation. She is complaining from left lateral chest pain today. Her pain is atypical and looks more related to GI tract. Vitals stable. Hemoglobin is 11.7, platelets 118. INR is 2.8. Plan for EGD on Saturday Objective - Vital Signs Vital signs: Vital Signs Temp 98.3 F 12/03/21 07:00 Pulse 67 12/03/21 07:00 Resp 18 12/03/21 07:00 BP 122/66 12/03/21 07:00 Pulse Ox 93 L 12/03/21 07:00 Intake & Output 12/02/21 12/03/21 12/03/21 18:59 06:59 18:59 Intake Total 420 Balance 420 Weight 113.398 kg Intake: Oral 420 Other: # Voids 2 1 # Bowel Movements 0 0 - Exam GENERAL: The patient is alert and oriented x3, not in any acute distress. Well developed, well nourished. HEENT: Pupils are round and equally reacting to light. EOMI. No scleral icterus. No conjunctival pallor. Normocephalic, atraumatic. No pharyngeal erythema. No thyromegaly. CARDIOVASCULAR: S1 and S2 present. No murmurs, rubs, or gallops. PULMONARY: Chest is clear to auscultation, no wheezing or crackles. ABDOMEN: Soft, mild epigastric tenderness, nondistended, normoactive bowel sounds. No palpable organomegaly. MUSCULOSKELETAL: No joint swelling or deformity. EXTREMITIES: No cyanosis, clubbing, or pedal edema. NEUROLOGICAL: Gross neurological examination did not reveal any focal deficits. SKIN: No rashes. No petechiae - Labs CBC & Chem 7: 12/03/21 05:08 12/02/21 05:30 Labs: Abnormal Lab Results - Last 24 Hours (Table) 12/03/21 12/03/21 Range/Units 05:08 05:08 WBC 4.39 L (4.50-10.00) X 10*3/uL RBC 3.80 L (4.10-5.20) X 10*6/uL Hgb 11.7 L (12.0-15.0) g/dL MCV 100.8 H (80.0-97.0) fL MCHC 30.5 L (32.0-37.0) g/dL Plt Count 118 L (140-440) X 10*3/uL MPV 12.3 H (9.5-12.2) fL PT 28.0 H (9.0-12.0) sec INR 2.8 H (<1.2) Assessment and Plan Assessment: Epigastric pain Chest pain rule out cardiac causes History of irritable bowel syndrome History of mitral and aortic valve replacement History of GERD Chronic atrial fibrillation on Coumadin Coagulopathy secondary to Coumadin, mild Hypertension History of osteoarthritis History of vertigo Chronic sinusitis History of irritable bowel syndrome Chronic neck pain History of cataract Status post AICD and pacemaker Plan: This pleasant 76 years old female who presents with epigastric pain Continue with pain management, and IV fluid Surgery team consult Pain management Hold Coumadin and monitor INR Consult photonics engineer Labs and medication were reviewed.. Continue same treatment. Continue with symptomatic treatment. Resume home medication. Monitor lytes and vitals. DVT and GI prophylaxis. Further recommendations depends on the clinical course of the patient DVT prophylaxis: On Coumadin GI Prophylaxis: Pepcid PT/OT: Pending Prognosis is guarded
[2021-12-04] MEDS: PANTOPRAZOLE 40 MG TABLET PO SCH (10:13)
[2021-12-04] MEDS: FUROSEMIDE 20 MG TAB PO SCH (10:13)
[2021-12-04] MEDS: ASPIRIN 325 MG TAB PO SCH (10:13)
--- NOTE | 2021-12-04 10:35 | CA ---
Transthoracic Echo Report Name: Nimisha Westbrook Age: 76 Gender: F : 1945 Exam Date: 12/04/2021 09:20 Exam Location: [facility] Ht (in): 61 Wt (lb): 250 Ordering Physician: Kaitlin Sung Attending/Referring Phys: Header Boss Kaitlyn Multani RDCS Procedure CPT: Indications: chest pain, LV function Cardiac Hx: Hx of mechanical aortic and mitral valve. Technical Quality: Technically difficult study Contrast 1: Lumason Total Dose (mL): 1 Contrast 2: Total Dose (mL): MEASUREMENTS (Male / Female) Normal Values 2D ECHO LV Diastolic Diameter PLAX 4.0 cm 4.2 - 5.9 / 3.9 - 5.3 cm LV Systolic Diameter PLAX 3.3 cm IVS Diastolic Thickness 1.1 cm 0.6 - 1.0 / 0.6 - 0.9 cm LVPW Diastolic Thickness 1.1 cm 0.6 - 1.0 / 0.6 - 0.9 cm LV Relative Wall Thickness 0.5 DOPPLER AV Peak Velocity 222.9 cm/s AV Peak Gradient 19.9 mmHg AV Mean Velocity 170.6 cm/s AV Mean Gradient 12.6 mmHg AV Velocity Time Integral 44.9 cm AI Peak Velocity 142.5 cm/s AI Peak Gradient 8.1 mmHg AI Pressure Half Time 517.4 ms LVOT Peak Velocity 153.6 cm/s LVOT Peak Gradient 9.4 mmHg MV Peak Velocity 177.8 cm/s MV Peak Gradient 12.6 mmHg MV Mean Velocity 70.3 cm/s MV Mean Gradient 2.8 mmHg MV Velocity Time Integral 31.5 cm MV Area PHT 2.2 cm??? MR Peak Velocity 107.6 cm/s MR Peak Gradient 4.6 mmHg Mitral E Point Velocity 168.5 cm/s Mitral A Point Velocity 35.0 cm/s Mitral E to A Ratio 4.8 MV Deceleration Time 345.6 ms FINDINGS Left Ventricle Mildly increased septal wall thickness. Mildly increased posterior wall thickness. Left ventricular ejection fraction is estimated at 30-35 %. Pacemaker Right Ventricle The right ventricle is normal in size and function. Right Atrium The right atrium is normal in size. Left Atrium The left atrium is normal in size. Mitral Valve Mechanical prosthetic mitral valve. Appears to be stenotic. There is trace mitral regurgitation. Aortic Valve Normally functioning mechanical aortic valve. . There is mild aortic regurgitation. Tricuspid Valve Structurally normal tricuspid valve without significant stenosis. Pulmonary artery systolic pressure is normal. Mild tricuspid regurgitation. Pulmonic Valve Structurally normal pulmonic valve without significant stenosis. There is no pulmonic regurgitation. Pericardium Normal pericardium without effusion. Aorta Normal aortic root dimension. CONCLUSIONS Technically difficult study for interpretation Impaired LV function with EF between 30-35% Poorly visualized intracardiac valves Mechanical mitral valve prosthesis and a valve appeared to be stenotic Mechanical aortic valve prosthesis with mild aortic regurgitation Previewed by: Dr. Vinicius Cornejo MD (Electronically Signed) Final Date: 04 Dec 2021 10:03
--- NOTE | 2021-12-04 11:03 | P.PN ---
Subjective This is a 76-year-old female with a history of chronic atrial fibrillation, hypertension, mechanical aortic and mitral valve replacements in 1970s, n onischemic care myopathy with prior biventricular AICD with mild improvement in EF 40-45%, GERD, irritable bowel syndrome. She follows with Dr Tucker. Cardiology was consulted for chest pain. She started noticing pain under her left breast as well as somewhat anterior chest on 12/02. She denies any association with exertion, diaphoresis, nausea or shortness breath. She has been having increased heart burn and abdominal pain. Troponin is noted to be normal 3. Patient is being evaluated for possible EGD. It is somewhat reproducible in the epigastric region. She denies any hematochezia or melena. Currently the chest pain has resolved. She admits she is scheduled for a echo in a few months in the office. Her last stress test she believes has been a few years ago. EKG revealed atrial fibrillation with ventricular paced rhythm. 12/04/2021 Patient seen and examined at bedside, she continues to endorse abdominal pain, and heartburn. She denies shortness of breath. Plan for patient to undergo EGD today. Vital signs are stable. Labs, hemoglobin 11.7 yesterday. INR is 2.1 today. Patient's Coumadin have been held for her EGD. Patient currently maintained on Lasix 20 mg twice a day, losartan 50 mg daily, propranolol 40 mg twice a day Echocardiogram revealed an EF 3035%, mechanical prosthetic mitral valve, appears to be stenotic, trace mitral regurgitation, normal functioning mechanical aortic valve, mild aortic regurgitation PHYSICAL EXAMINATION Vital signs reviewed. CONSTITUTIONAL: No apparent distress. HEENT: Head is normocephalic. Pupils are equal, round. Sclerae anicteric. Mucous membranes of the mouth are moist. No JVD. No carotid bruit. CHEST EXAMINATION: Lungs are clear to auscultation. No chest wall tenderness is noted on palpation or with deep breathing. HEART EXAMINATION: Regular rate and rhythm. S1, S2 heard. No murmurs, gallops or rub. ABDOMEN: Soft, nontender. Positive bowel sounds. EXTREMITIES: 2+ peripheral pulses, +trace lower extremity edema and no calf tenderness. NEUROLOGIC EXAMINATION: Patient is awake, alert and oriented x3. ASSESSMENT Atypical chest pain and appears more epigastric related to GI source. Re producible in the epigastric region. Troponins normal 3 and do not suspect acute coronary syndrome. Permanent atrial fibrillation History of nonischemic cardiopathy status post biventricular AICD Coumadin coagulopathy History of aortic and mitral mechanical valve replacement Chronic heart failure with reduced ejection fraction PLAN Patient's epigastric and chest pain does not appear cardiac in nature. Appears more GI related. Troponin is normal 3 and do not suspect acute coronary syndrome. Appears euvolemic and no significant angina-type symptoms and patient is cleared for endoscopy from a cardiology standpoint. Recommend proceeding with EGD on Coumadin or bridging with Lovenox given mechanical mitral and aortic valve. We recommend starting Lovenox as soon as possible to reduce risk of stroke, discussed with general surgery team. Monitor INR daily Further recommendations based on clinical course Nurse practitioner note has been reviewed by physician. Signing provider agrees with the documented findings, assessment, and plan of care. Objective - Vital Signs Vital signs: Vital Signs Temp 97.8 F 12/04/21 07:00 Pulse 78 12/04/21 07:00 Resp 18 12/04/21 07:00 BP 131/80 12/04/21 07:00 Pulse Ox 93 L 12/04/21 07:00 Intake & Output 12/03/21 12/04/21 12/04/21 18:59 06:59 18:59 Intake Total 480 Balance 480 Intake: Oral 480 Other: Voiding Method Toilet # Voids 2 1 - Labs CBC & Chem 7: 12/03/21 05:08 12/02/21 05:30 Labs: Abnormal Lab Results - Last 24 Hours (Table) 12/04/21 Range/Units 08:16 PT 20.8 H (9.0-12.0) sec INR 2.1 H (<1.2)
[2021-12-04] MEDS: PROPRANOLOL 40 MG TAB PO SCH (11:10)
[2021-12-04] MEDS: LOSARTAN 50 MG TAB PO SCH (12:43)
[2021-12-04] MEDS ORDERED: LACTATED RINGERS 1,000 ML IV ONE (13:20)
[2021-12-04] MEDS ORDERED: LIDOCAINE 2% INJ 20 MG/ML (2 ML VIAL) ONE (13:20)
[2021-12-04] MEDS ORDERED: PROPOFOL 10 MG/ML 20 ML VIAL IV ONE (13:20)
--- NOTE | 2021-12-04 13:37 | P.OP ---
Date of Procedure: 12/04/21 Preoperative Diagnosis: Epigastric pain Postoperative Diagnosis: Antral gastritis Procedure(s) Performed: EGD Anesthesia: MAC Surgeon: Ryne Hammond Pathology: other (Antrum) Condition: stable Disposition: PACU Description of Procedure: The patient's placed on the endoscopy table in the lateral position. She received IV sedation. The gastro-/oropharynx passed in the esophagus and the stomach. Scope was then placed through the pylorus. The first and second portion of the duodenum appeared normal. Scope was then brought back the antrum was mildly inflamed. A biopsies performed. The esophagusAppeared minimal inflamed. The proximal esophagus appeared normal. Scope withdrawn for patient.
[2021-12-04 14:40] VITALS: BP 118/76; PULSE 61; RESP 16; TEMP 98.5
[2021-12-04] MEDS ORDERED: ENOXAPARIN 120 MG/0.8 ML SYRINGE SQ SCH (18:00)
--- NOTE | 2021-12-05 15:33 | P.DS ---
Providers Date of admission: 12/02/21 07:53 Attending physician: Perri Davies Consults: 12/02/21 07:53 Consult Physician Routine Consulting Provider: Vinicius Cornejo Consult Reason/Comments: chest pain Do you want consulting provider notified?: Yes 12/02/21 10:52 Consult Physician Routine Consulting Provider: Ryne Hammond Consult Reason/Comments: epigastic pain Do you want consulting provider notified?: Yes Primary care physician: Mauri Burkett Hospital Course: Final Diagnosis Epigastric pain Chest pain, ACS has been ruled out History of mitral and aortic valve replacement History of GERD Chronic atrial fibrillation on Coumadin Coagulopathy secondary to Coumadin, mild on admission Status post AICD and pacemaker Hypertension History of osteoarthritis History of vertigo Chronic sinusitis History of irritable bowel syndrome Chronic neck pain History of cataract Discharge Disposition Patient is stable for discharge home. She will complete a lovenox bridge as INR today 2.1. Script given for repeat INR in 2 days, and will need to follow up with PCP as well as GI services. Hospital Course This is a pleasant 76 year old female presents to the hospital with complaints of epigastric pain and discomfort. She also reports chest pain that has ongoing for the last 2 days. Patient is a history of hypothyroidism, atrial fibrillation on warfarin, gastroesophageal reflux disease, maintained on Protonix daily, hypertension, osteoarthritis, irritable bowel syndrome, chronic pain in the neck, she is status post AICD and also status post mitral and aortic valve replacement. Patient does follow Dr. Shannan Burkett primary care office, art therapy specialist include Dr. Tucker and she also has followed Dr. Rachael Garner for GI services but has not seen for a while. Patient does get frequent abdominal pain that usually lasts about 24 hours related to her IBS last she had this pain is much weeks ago. This admission the pain lasted for over 48 hours and she was concerned she came to the emergency room for evaluation. She rates the epigastric pain described like a pressure and burning about 2 out of 10 severity it is worse with walking and associated with diarrhea and she does report a bowel movement since yesterday. She denies nausea or vomiting. There is no dysuria or burning or urgency. There is also complains of left upper chest pain 2 days duration rating of 3 out of 10 severity is also increased by walking she does feel like there is a palpation as well. She is reporting little dizziness that is nonspecific, no presyncope no ear pain, no ear fullness, no sinus pain, sinus pressure or drainage. No visual changes. She denies fever or chills. Patient denies smoking, alcohol use. Her last EGD colonoscopy was 3-4 years ago. Initial diagnostics include an unremarkable CBC, INR 3.2, BNP and liver enzymes were normal. Urinalysis showed 1+ glucose with mild leukocyte esterase EGD and colonoscopy in 2018 showed a small sliding hiatal hernia with no obvious esophagitis or Acute reflux disease, mild gastritis, normal colon exam. Received full strenght Aspirin, IV fluids and nitroglycerin in the EC. Patient was admitted to the hospital with consults placed to cardiology and GI services. Patient underwent 2-D echocardiogram showing an EF of 30-35% with mechanical mitral valve prosthesis and the valve appeared to be some stenotic, mechanical aortic valve prosthesis and mild aortic regurgitation. Cardiology has cleared the patient and chest pain was ruled noncardiac. She underwent EGD on 12/04/2021 for epigastric pain and burning with postoperative diagnosis of antral gastritis, no signs of active GI bleed. Biopsies were performed of the mildly inflamed antrum, the esophagus also appeared mildly inflamed however proximal esophagus was normal. Labs showing stable hemoglobin 11.7, INR 2.1. 12/04/2021 Patient evaluated today status post EGD colonoscopy. There is no signs of acute active GI bleeding. No complaints of bright red blood, maroon or black stool. Patient denies any abdominal pain currently. She is complaining of some intermittent epigastric burning. Protonix was increased to twice a day for next 14 days and then she can continue with oral Protonix 40 milligrams by mouth daily. Recommended to follow-up with Dr. Garner with GI services in the office. She also needs to follow up with Dr Tucker in 2 weeks. Follow up with Dr Burkett in 2-3 days. INR was 2.1 today. Patient cleared to resume coumadin and was started on bridge with lovenox. Education is provided about how to use this medication outpatient. She'll recheck her INR in 2 days. Denies chest pain, shortness of breath, nausea vomiting. Denies further episodes of dizziness. Lungs are clear, S1-S2 auscultated, abdomen is soft and nontender, focal neurological exam is negative. Patient is given a prescription for repeat CBC in 2 days. Follow-up with providers as recommended. Please see medication reconciliation for list of current medication. Thank you for allowing us to participate in the care of this patient. The impression and plan of care has been dictated by Adilia Travis, Nurse Practitioner as directed. Dr. Jesenia MD I have performed a history and physical examination and medical decision making of this patient, discussed the same with the dictator, and agree with the dictators assessment and plan as written, documented as a scribe. Based on total visit time, I have performed more than 50% of this visit. Patient Condition at Discharge: Stable Plan - Discharge Summary Discharge Rx Participant: No New Discharge Prescriptions: New Enoxaparin [Lovenox] 110 mg SQ Q12H 4 Days #8 each Continue traMADol HCl [Ultram] 50 mg PO QID PRN PRN Reason: Pain Furosemide [Lasix] 20 mg PO BID Dicyclomine [Bentyl] 10 mg PO TID Levothyroxine Sodium [Synthroid] 50 mcg PO DAILY Warfarin [Coumadin] 5 mg PO SUWE Potassium Chloride [K-Tab ER] 10 meq PO DAILY Propranolol HCl 80 mg PO TID Mag/Aluminum/Sod Bicarb/Alginc [Gaviscon 80-14.2 mg Tab Chew] 2 - 4 tab PO DAILY PRN PRN Reason: Gi Upset Multivitamins, Thera [Multivitamin (formulary)] 1 tab PO DAILY Warfarin [Coumadin] 2.5 mg PO MOTUTHFRSA Losartan Potassium 50 mg PO DAILY Carboxymethylcellulose Sodium [Refresh Tears] 1 drop BOTH EYES DAILY PRN PRN Reason: DRY EYES Cholecalciferol [Vitamin D3 (25 Mcg = 1000 Iu)] 25 mcg PO DAILY Pantoprazole Sodium [Protonix] 40 mg PO BID Discharge Medication List Dicyclomine [Bentyl] 10 mg PO TID 02/01/14 [History] Furosemide [Lasix] 20 mg PO BID 02/01/14 [History] Levothyroxine Sodium [Synthroid] 50 mcg PO DAILY 02/01/14 [History] Warfarin [Coumadin] 5 mg PO SUWE 02/01/14 [History] traMADol HCl [Ultram] 50 mg PO QID PRN 02/01/14 [History] Potassium Chloride [K-Tab ER] 10 meq PO DAILY 06/10/15 [History] Mag/Aluminum/Sod Bicarb/Alginc [Gaviscon 80-14.2 mg Tab Chew] 2 - 4 tab PO DAILY PRN 11/04/17 [History] Propranolol HCl 80 mg PO TID 11/04/17 [History] Carboxymethylcellulose Sodium [Refresh Tears] 1 drop BOTH EYES DAILY PRN 12/02/21 [History] Cholecalciferol [Vitamin D3 (25 Mcg = 1000 Iu)] 25 mcg PO DAILY 12/02/21 [History] Losartan Potassium 50 mg PO DAILY 12/02/21 [History] Multivitamins, Thera [Multivitamin (formulary)] 1 tab PO DAILY 12/02/21 [History] Pantoprazole Sodium [Protonix] 40 mg PO BID 12/02/21 [History] Warfarin [Coumadin] 2.5 mg PO MOTUTHFRSA 12/02/21 [History] Enoxaparin [Lovenox] 110 mg SQ Q12H 4 Days #8 each 12/04/21 [Rx] Follow up Appointment(s)/Referral(s): Jagdish Tucker MD [STAFF PHYSICIAN] - 2 Weeks Aida Garner MD [STAFF PHYSICIAN] - 2 Weeks Mauri Burkett DO [Primary Care Provider] - 1-2 days Ryne Hammond MD [STAFF PHYSICIAN] - 1 Week Ambulatory/Diagnostic Orders: Complete Blood Count w/diff [LAB.AMB] Time Frame: 2 Days, Location: None Selected Prothrombin Time INR [LAB.AMB] Time Frame: 2 Days, Location: None Selected Patient Instructions/Handouts: Gastritis (DC), How to Give a Subcutaneous Injection (DC), GERD (Gastroesophageal Reflux Disease) (DC) Activity/Diet/Wound Care/Special Instructions: Follow up with primary care in 2 days. Follow up with Dr. Coretta Garner in the office; known to patient. Continue with protonix twice a day. Lovenox twice a day until INR therapeutic. Repeat INR tomorrow outpatient Recommend follow up Folate and B12 level outpatient. Discharge Disposition: HOME SELF-CARE
== END 2021-12-04 16:12 | disposition home or self-care (01) ==
LOC: EC 04:37 → 6NMEDSUR 07:53
PROVIDERS: ADMIT Hospitalist; ATTEND Hospitalist
DX: K29.50 Unspecified chronic gastritis without bleeding (principal); R07.89 Other chest pain; K21.9 Gastro-esophageal reflux disease without esophagitis; I48.21 Permanent atrial fibrillation; R79.1 Abnormal coagulation profile; T45.515A Adverse effect of anticoagulants, initial encounter; I11.0 Hypertensive heart disease with heart failure; I50.22 Chronic systolic (congestive) heart failure; M19.90 Unspecified osteoarthritis, unspecified site; R42 Dizziness and giddiness; J32.9 Chronic sinusitis, unspecified; K58.0 Irritable bowel syndrome with diarrhea; G89.29 Other chronic pain; M54.2 Cervicalgia; R61 Generalized hyperhidrosis; E03.9 Hypothyroidism, unspecified; K44.9 Diaphragmatic hernia without obstruction or gangrene; I09.9 Rheumatic heart disease, unspecified; M54.9 Dorsalgia, unspecified; M25.551 Pain in right hip; M25.562 Pain in left knee; M25.561 Pain in right knee; F41.9 Anxiety disorder, unspecified; Z95.810 Presence of automatic (implantable) cardiac defibrillator; Z95.2 Presence of prosthetic heart valve; Z71.9 Counseling, unspecified; Z90.49 Acquired absence of other specified parts of digestive tract; Z79.890 Hormone replacement therapy; Z79.899 Other long term (current) drug therapy; Z79.891 Long term (current) use of opiate analgesic; Z79.01 Long term (current) use of anticoagulants; Z88.1 Allergy status to other antibiotic agents; Z88.8 Allergy status to other drugs, medicaments and biological substances; Z91.041 Radiographic dye allergy status; Z98.41 Cataract extraction status, right eye; Z98.42 Cataract extraction status, left eye; Z82.49 Family history of ischemic heart disease and other diseases of the circulatory system; Z82.0 Family history of epilepsy and other diseases of the nervous system; Z81.8 Family history of other mental and behavioral disorders; Z82.61 Family history of arthritis; Z80.42 Family history of malignant neoplasm of prostate
CPT/HCPCS: 96361; 96374; 96375; 99285; 36415; 93005; 88305; 83880; 80061; 80053; 82150; 83690; 84484; 85025 ×2; 85610 ×3; 81001; 71046; 43239; G0378 ×3; C8929; J2270; J2405; J2704; Q9950; J2001; 93306

== ENCOUNTER → 2021-12-26 | Outpatient (CLI) | payer MEDICARE, BC ==
--- NOTE | 2021-12-26 14:31 | CT ---
EXAMINATION TYPE: CT brain wo con DATE OF EXAM: 12/26/2021 COMPARISON: CT dated 09/28/2014 HISTORY: HEADACHES CT DLP: 943.8 mGycm Automated exposure control for dose reduction was used. TECHNIQUE: CT scan of the brain is performed without IV contrast administration. FINDINGS: Stable left lateral frontal cortical and subcortical area of encephalomalacia, likely representing se quela of previous infarct. Bilateral cerebral white matter hypodensities likely representing chronic microvascular ischemic changes. Brain volume loss changes, likely age related. Focal right frontal subcortical white matter hypodensi ty, appreciated previously and possibly ischemic. Scattered arterial atherosclerotic calcifications. Suspected tiny right superior cerebellar chronic infarct. No acute intracranial hemorrhage. No gross acute cortical infarct. No midline shift, herniation or ve ntriculomegaly. Unremarkable basal cisterns, sella and CP angles. No gross space-occupying lesion, va sogenic edema or mass effect. Slightly prominent superior ophthalmic veins, nonspecific. Otherwise unremarkable orbits. Clear visua lized paranasal sinuses and mastoid air cells. Osteopenia. IMPRESSION: No acute intracranial abnormality or gross space-occupying lesion by this nonenhanced CT scan. Chronic and incidental findings as described above.
== END | disposition home or self-care (01) ==
LOC: RADCTMAIN 13:26
PROVIDERS: ATTEND Family Medicine
DX: R51.9 Headache, unspecified (principal)
CPT/HCPCS: 70450

== ENCOUNTER 2023-02-16 19:38 | Inpatient (IN) | payer MEDICARE, BC ==
[2023-02-16] MEDS ORDERED: KETOROLAC 15 MG/ML 1 ML VIAL IVP STA (20:08)
[2023-02-16] MEDS ORDERED: HYDROmorphone 0.5 MG/0.5 ML SYRINGE IVP STA (20:08)
--- NOTE | 2023-02-16 21:11 | CT ---
EXAMINATION TYPE: CT abdomen pelvis wo con CT DLP: 1693.3 mGycm, Automated exposure control for dose reduction was used. DATE OF EXAM: 02/16/2023 8:54 PM COMPARISON: CT abdomen pelvis most recent from 11/05/2017 CLINICAL INDICATION:Female, 77 years old with history of Left flank pain; Left flank pain TECHNIQUE: Axial CT of the abdomen and pelvis. Sagittal and coronal reformats were created on a [employer] workstation. Contrast used:(none if empty) Oral contrast used: without Oral Contrast (none if empty) FINDINGS: LOWER CHEST: The heart is mildly enlarged for size. Cardiac conduction leads are present. Intrahepati c repair changes as well as aortic valve repair changes. Elevated right hemidiaphragm. Trace right pl eural effusion. ABDOMEN LIVER: Unremarkable GALLBLADDER AND BILE DUCTS: Gallbladder surgically absent. PANCREAS: Mild fat stranding changes in the upper abdomen near the pancreas. Most pronounced in the p ancreatic head and uncinate process. SPLEEN: Unremarkable. ADRENAL GLANDS: Unremarkable. KIDNEYS AND URETERS: No evidence of hydronephrosis or renal calculus. The ureters are unremarkable. PELVIS BLADDER: Unremarkable REPRODUCTIVE: Unremarkable. ABDOMEN & PELVIS STOMACH AND BOWEL: No evidence of bowel obstruction. The appendix is normal. PERITONEUM/RETROPERITONEUM: No evidence of pneumoperitoneum. Trace free fluid throughout the abdomen/ pelvis. VASCULATURE: No evidence of aortic aneurysm. MUSCULOSKELETAL: No acute osseous abnormalities, there is fixation hardware in the left femur which a ppears intact. Multilevel degeneration changes of the spine with some scoliosis. LYMPH NODES: No gross evidence for lymphadenopathy. No enlarged lymph node measuring up to 26 x 22 x 34 mm 2series 201 image 82 SOFT TISSUE/ABDOMINAL WALL: Unremarkable IMPRESSION: 1. Mild inflammation changes around the pancreatic head and uncinate process correlate with serum li pase. No additional finding to right with patient's pain. 2. New enlarged lymph node along the right ureter which is not seen on prior and is suspicious for n eoplastic process. 3. Cardiomegaly with trace right pleural effusion correlate with serum BNP for congestive heart fail ure.
--- NOTE | 2023-02-16 21:38 | ED ---
Back Pain HPI - General Chief Complaint: Back Pain/Injury Stated Complaint: Back Pain Time Seen by Provider: 02/16/23 19:43 Source: EMS, RN notes reviewed Mode of arrival: EMS - History of Present Illness Initial Comments: This is a 77-year-old female who presents to the emergency department for back pain. States that she was bending over to clean milk off of the floor last nig ht, and was doing okay. She was able to get up around 5 AM to use the bathroom without difficulties. However, around 9 AM she developed severe pain to the left back and left hip area and was subsequently unable to walk. Also has chronic back pain but states that this feels different. She took the tramadol that she had at home, however this was not effective. Denies any urinary symptoms. Also denies any loss of bowel/bladder control or saddle anesthesia. Denies any fevers, chills, sore throat, cough, dyspnea, chest pain, palpitations, abdominal pain, nausea, vomiting, diarrhea, or headaches. MD Complaint: back pain - Related Data Home Medications Medication Instructions Recorded Confirmed Dicyclomine [Bentyl] 10 mg PO TID@0900,1700,2100 02/01/14 02/17/23 Furosemide [Lasix] 20 mg PO BID@0600,1200 02/01/14 02/17/23 Levothyroxine Sodium [Synthroid] 50 mcg PO AC-BRKFST@0500 02/01/14 02/17/23 Warfarin [Coumadin] 5 mg PO DIRECTED 02/01/14 02/17/23 traMADol HCl [Ultram] 50 mg PO TID@0500,1200,2100 02/01/14 02/17/23 Propranolol HCl 80 mg PO TID@0900,1700,2100 11/04/17 02/17/23 Losartan Potassium 50 mg PO DAILY@1200 12/02/21 02/17/23 Pantoprazole Sodium [Protonix] 40 mg PO DAILY@0600 12/02/21 02/17/23 Famotidine 20 mg PO W/SUPPER 02/17/23 02/17/23 Multivitamin [Multivitamins Adult 2 tab PO DAILY 02/17/23 02/17/23 Gummies] Potassium Chloride 10 meq PO DAILY@1200 02/17/23 02/17/23 Previous Rx's Medication Instructions Recorded Famotidine [Pepcid] 20 mg PO DAILY #12 tablet 02/17/23 predniSONE [Deltasone] 20 mg PO DAILY #24 tab 02/17/23 Allergies Allergy/AdvReac Type Severity Reaction Status Date / Time azithromycin Allergy Rash/Hives Verified 02/17/23 15:34 digoxin [From Lanoxin] Allergy Rapid Verified 02/17/23 15:34 Heart Rate Iodinated Contrast Media Allergy Wheezing Verified 02/17/23 15:34 [Iodinated Contrast Media - IV Dye] levofloxacin Allergy Rash/Hives Verified 02/17/23 15:34 erythromycin base AdvReac Unknown Diarrhea Verified 02/17/23 15:34 Review of Systems ROS Statement: Those systems with pertinent positive or pertinent negative responses have been documented in the HPI. ROS Other: All systems not noted in ROS Statement are negative. Past Medical History Past Medical History: Atrial Fibrillation, Eye Disorder, GERD/Reflux, Hypertens ion, Osteoarthritis (OA), Thyroid Disorder Additional Past Medical History / Comment(s): POST MENOPAUSAL VAGINAL BLEEDING,MEDTRONIC PACEMAKER/DEFIBRILLATOR (2006), FX LEFT FEMUR (2008), VERTIGO, HX OF RHEUMATIC HEART DISEASE, CHRONIC SINUSITIS, IBS, PAIN IN BACK, RIGHT HIP AND KNEES,HEMORRHOIDS, CATARACTS History of Any Multi-Drug Resistant Organisms: None Reported Past Surgical History: AICD, Cholecystectomy, Orthopedic Surgery, Pacemaker Additional Past Surgical History / Comment(s): D & C. ORIF LT FEMUR,ARTIFICIAL MITRAL & AORTIC HEART VALVES (1978), PACEMAKER /AICD (2006) AND BATTERY CHANGE (2012). LT and RT EYE CATARACT REMOVED Past Anesthesia/Blood Transfusion Reactions: Motion Sickness, Postoperative Nausea & Vomiting (PONV) Type of Cardiac Device: Permanent Pacemaker, AICD Device Placement Date:: 2006 Past Psychological History: Anxiety Past Alcohol Use History: None Reported Past Drug Use History: None Reported - Past Family History Father Family Medical History: Myocardial Infarction (SC) Brother(s) Family Medical History: Cancer Additional Family Medical History / Comment(s): PROSTATE CA Mother Family Medical History: Deep Vein Thrombosis (DVT), Osteoarthritis (OA) Additional Family Medical History / Comment(s): PARKINSON'S,SCHIZOPHRENIC General Exam Limitations: no limitations General appearance: alert, in distress Head exam: Present: atraumatic, normocephalic, normal inspection Respiratory exam: Present: normal lung sounds bilaterally. Absent: respiratory distress, wheezes, rales, rhonchi, stridor Cardiovascular Exam: Present: regular rate, normal rhythm, normal heart sounds. Absent: systolic murmur, diastolic murmur, rubs, gallop, clicks Back exam: Present: CVA tenderness (L). Absent: CVA tenderness (R) Neurological exam: Present: alert, oriented X3, CN II-XII intact Psychiatric exam: Present: normal affect, normal mood Skin exam: Present: warm, dry, intact, normal color. Absent: rash Course Vital Signs 02/16/23 02/16/23 02/17/23 20:00 23:12 01:00 Temperature 98.2 F Pulse Rate 61 62 65 Respiratory 18 18 18 Rate Blood Pressure 128/52 128/60 129/70 O2 Sat by Pulse 94 L 96 96 Oximetry 02/17/23 07:44 Temperature Pulse Rate 67 Respiratory 20 Rate Blood Pressure 129/69 O2 Sat by Pulse 97 Oximetry Medical Decision Making - Medical Decision Making This is a 77-year-old female who presents to the emergency department for back pain. Was pt. sent in by a medical professional or institution? @ -No Did you speak to anyone other than the patient for history? @ -No Did you review nursing and triage notes? @ -Yes, and I agree, it is accurate with regards to the patient's symptoms. Were old charts reviewed? @ -No Differential Diagnosis? @ -Differential Back Pain: Strain, zoster, cauda equina syndrome, epidural abscess, vertebral osteomyelitis , discitis, fracture, subluxation, disc herniation, DJD, spinal stenosis, dissection, AAA, pancreatitis, peptic ulcer disease, pyelonephritis, kidney stone, this is not meant to be an all-inclusive list. EKG interpreted by me (3pts min.)? @ -Not obtained X-rays interpreted by me (1pt min.)? @ -Not obtained CT interpreted by me (1pt min.)? @ -Computed tomography scan of the abdomen and pelvis obtained. My interpretation identifies no evidence of a ureteral calculus. U/S interpreted by me (1pt. min.)? @ -Not obtained What testing was considered but not performed? (CT, X-rays, U/S, labs)? Why? @ -None What meds were considered but not given? Why? @ -None Did you discuss the management of the patient with other professionals? @ -Dr. Joyce discussed case with [facility]. Did you reconcile home meds? @ -No Was smoking cessation discussed for >3mins.? @ -No Was critical care preformed (if so, how long)? @ -No Were there social determinants of health that impacted care today? How? (Homelessness, low income, unemployed, alcoholism, drug addiction, transportation, low edu. Level, literacy, decrease access to med. care, fpc, rehab)? @ -No Was there de-escalation of care discussed even if they declined? (Discuss DNR or withdrawal of care, Hospice)? @ -No What co-morbidities impacted this encounter? (DM, HTN, Smoking, COPD, CAD, Cancer, CVA, Hep., AIDS, mental health diagnosis, sleep apnea, morbid obesity)? @ -Osteoarthritis, chronic back pain, morbid obesity Was patient admitted / discharged? @ -Admitted. Lab work obtained and found to be nonactionable. Urinalysis was very contaminated with questionable signs of infection. Computed tomography scan of the abdomen and pelvis obtained for further evaluation. She had multiple incidental findings without any acute process identified to account for her symptoms. She had mild inflammation around the pancreatic head, however pancreatic enzymes were within normal limits. Patient did not have any abdomi nal pain. She also has a new enlarged lymph node along the right ureter that was not present on prior imaging. Radiology is concerned about a neoplastic process. Cardiomegaly with trace pleural effusion was also identified. After giving the patient multiple pain medications, we tried to get her to stand up, however she was barely able to get off of the stretcher. I had initially planned on sending the patient home with prescriptions for anti-inflammatories, muscle relaxants, and lidocaine patches. However, given that she is essentially unable to move, patient admitted to medicine for further management of intractable back pain. Additionally, the patient lives alone and is unable to care for herself in this state and is at risk for falls. Undiagnosed new problem with uncertain prognosis? @ -None Drug Therapy requiring intensive monitoring for toxicity (Heparin, Nitro, Insulin, Cardizem)? @ -None Were any procedures done? @ -None Diagnosis/symptom? @ -Intractable back pain Acute, or Chronic, or Acute on Chronic? @ -Acute Uncomplicated (without systemic symptoms) or Complicated (systemic symptoms)? @ -Uncomplicated Side effects of treatment? @ -None Exacerbation, Progression, or Severe Exacerbation] @ -Not applicable Poses a threat to life or bodily function? @ -Yes This case was discussed in detail with the attending ED physician, Dr. Joyce. Presentation, findings, and treatment plan discussed in detail as well. - Lab Data Result diagrams: 02/18/23 07:00 02/18/23 07:00 Lab Results 02/16/23 02/16/23 02/16/23 Range/Units 21:53 21:53 23:12 WBC 6.4 (3.8-10.6) k/uL RBC 3.92 (3.80-5.40) m/uL Hgb 12.7 (11.4-16.0) gm/dL Hct 38.2 (34.0-46.0) % MCV 97.4 (80.0-100.0) fL MCH 32.3 (25.0-35.0) pg MCHC 33.2 (31.0-37.0) g/dL RDW 13.5 (11.5-15.5) % Plt Count 115 L (150-450) k/uL MPV 9.7 Neutrophils % 74 % Lymphocytes % 12 % Monocytes % 11 % Eosinophils % 1 % Basophils % 0 % Neutrophils # 4.7 (1.3-7.7) k/uL Lymphocytes # 0.7 L (1.0-4.8) k/uL Monocytes # 0.7 (0-1.0) k/uL Eosinophils # 0.1 (0-0.7) k/uL Basophils # 0.0 (0-0.2) k/uL Sodium 136 L (137-145) mmol/L Potassium 4.1 (3.5-5.1) mmol/L Chloride 101 (98-107) mmol/L Carbon Dioxide 29 (22-30) mmol/L Anion Gap 6 mmol/L BUN 22 H (7-17) mg/dL Creatinine 0.96 (0.52-1.04) mg/dL Est GFR (CKD-EPI)AfAm 67 (>60 ml/min/1.73 sqM) Est GFR (CKD-EPI)NonAf 58 (>60 ml/min/1.73 sqM) Glucose 116 H (74-99) mg/dL Calcium 8.8 (8.4-10.2) mg/dL Total Bilirubin 0.9 (0.2-1.3) mg/dL AST 38 H (14-36) U/L ALT 26 (4-34) U/L Alkaline Phosphatase 93 (38-126) U/L Total Protein 6.8 (6.3-8.2) g/dL Albumin 3.5 (3.5-5.0) g/dL Amylase 50 (30-110) U/L Lipase 73 (23-300) U/L Urine Color Dark Yellow Urine Appearance Cloudy H (Clear) Urine pH 5.5 (5.0-8.0) Ur Specific [place] 1.040 H (1.001-1.035) Urine Protein 2+ H (Negative) Urine Glucose (UA) Negative (Negative) Urine Ketones Trace H (Negative) Urine Blood Moderate H (Negative) Urine Nitrite Negative (Negative) Urine Bilirubin Negative (Negative) Urine Urobilinogen 2.0 (<2.0) mg/dL Ur Leukocyte Esterase Moderate H (Negative) Urine RBC 5 (0-5) /hpf Urine WBC 35 H (0-5) /hpf Ur Squamous Epith Cells 20 H (0-4) /hpf Urine Bacteria Moderate H (None) /hpf Hyaline Casts 2 (0-2) /lpf - Radiology Data Radiology results: report reviewed, image reviewed Disposition Clinical Impression: Intractable back pain Disposition: ADMITTED IP TO THIS HOSP
[2023-02-16 22:11] LABS: Basophils % (A) 0 %; Eosinophils # (A) 0.1 k/uL (0-0.7); Eosinophils % (A) 1 %; HCT 38.2 % (34.0-46.0); HGB 12.7 gm/dL (11.4-16.0); Lymphocytes # (A) 0.7 k/uL (1.0-4.8); Lymphocytes % (A) 12 %; MCH 32.3 pg (25.0-35.0); MCHC 33.2 g/dL (31.0-37.0); MCV 97.4 fL (80.0-100.0); Mean Platelet Volume 9.7; Monocytes # (A) 0.7 k/uL (0-1.0); Monocytes % (A) 11 %; Neutrophils # (A) 4.7 k/uL (1.3-7.7); Neutrophils % (A) 74 %; Platelet Count 115 k/uL (150-450); RBC 3.92 m/uL (3.80-5.40); RDW 13.5 % (11.5-15.5); WBC 6.4 k/uL (3.8-10.6)
[2023-02-16 22:25] LABS: ALT 26 U/L (4-34); AST 38 U/L (14-36); African American GFR (CKD) 67 (>60 ml/min/1.73 sqM); Albumin 3.5 g/dL (3.5-5.0); Alkaline Phosphatase 93 U/L (38-126); Amylase 50 U/L (30-110); Anion Gap 6 mmol/L; Blood Urea Nitrogen 22 mg/dL (7-17); Calcium 8.8 mg/dL (8.4-10.2); Carbon Dioxide 29 mmol/L (22-30); Chloride 101 mmol/L (98-107); Glucose 116 mg/dL (74-99); Lipase 73 U/L (23-300); Non-African American GFR(CKD) 58 (>60 ml/min/1.73 sqM); Potassium 4.1 mmol/L (3.5-5.1); Sodium 136 mmol/L (137-145); Total Bilirubin 0.9 mg/dL (0.2-1.3); Total Protein 6.8 g/dL (6.3-8.2)
[2023-02-17 00:14] LABS: Color,Urine Dark Yellow
[2023-02-17 00:15] LABS: Appearance,Urine Cloudy (Clear); Bilirubin,Urine Negative (Negative); Blood,Urine Moderate (Negative); Glucose,Urine (UA) Negative (Negative); Ketones,Urine Trace (Negative); PH, Urine 5.5 (5.0-8.0); Protein,Urine 2+ (Negative)
[2023-02-17 00:16] LABS: Leukocyte Esterase,Urine Moderate (Negative); Nitrite,Urine Negative (Negative); RBC,Urine 5 /hpf (0-5); Squamous Epithelial Cell,Urine 20 /hpf (0-4); WBC,Urine 35 /hpf (0-5)
[2023-02-17 00:17] LABS: Bacteria,Urine Moderate /hpf; Hyaline Casts,Urine 2 /lpf (0-2)
[2023-02-17] MEDS ORDERED: ORPHENADRINE 30 MG/ML 2 ML VIAL IVP STA (00:41)
[2023-02-17] MEDS ORDERED: KETOROLAC 15 MG/ML 1 ML VIAL IVP STA (00:41)
[2023-02-17] MEDS ORDERED: HYDROmorphone 0.5 MG/0.5 ML SYRINGE IVP STA (00:41)
[2023-02-17] MEDS ORDERED: HYDROmorphone 1 MG/ML 1 ML SYRINGE IVP STA (02:39)
[2023-02-17] MEDS ORDERED: ACETAMINOPHEN TAB 325 MG TAB PO PRN (05:18)
[2023-02-17] MEDS ORDERED: HYDROmorphone 1 MG/ML 1 ML SYRINGE IVP PRN (05:18)
[2023-02-17] MEDS ORDERED: IBUPROFEN 400 MG TAB PO PRN (05:18)
[2023-02-17] MEDS ORDERED: NALOXONE 0.4 MG/ML 1 ML VIAL IV PRN (05:18)
[2023-02-17] MEDS ORDERED: ONDANSETRON 4 MG/2 ML VIAL IVP PRN (05:18)
[2023-02-17] MEDS: LIDOCAINE 5% PATCH TOPICAL SCH (08:59)
--- NOTE | 2023-02-17 13:48 | HP ---
HISTORY AND PHYSICAL CHIEF COMPLAINT: Back pain. HISTORY OF PRESENT ILLNESS: This is a 77-year-old woman with a past medical history of multiple medical problems including atrial fibrillation, hypertension, DJD, being followed by Dr. Mauri Burkett. The patient also had sciatic pain. The patient apparently was bending forward to clean milk yesterday. Subsequently, the patient is complaining of back pain, which was mostly situated in the upper back and the patient came to [facility] and was admitted for further evaluation and treatment. UA was found to be abnormal and a CAT scan of the abdomen and pelvis which I reviewed at length showed mild inflammatory changes around the pancreatic head and uncinate process, otherwise enlarged lymph nodes in the right ureter was also noted, suspicious for neoplastic process. Other than that, amylase and lipase are normal. The patient will be admitted for further evaluation and treatment. There is no history of any fever, rigors, or chills at this time. PAST MEDICAL HISTORY: History of sciatica. Rest of the history and rest of the chart are also reviewed. HOME MEDICATIONS: Reviewed include Ultram, doses and rest of medications reviewed and not confirmed. ALLERGIES: Reviewed and Zithromax. FAMILY HISTORY: History of prostate cancer in family. SOCIAL HISTORY: History of smoking or alcohol intake. REVIEW OF SYSTEMS: Fourteen-point review of systems negative except as mentioned earlier PHYSICAL EXAMINATION: VITAL SIGNS: Pulse is 68, blood pressure 110/65, respirations 19. HEENT: Conjunctivae normal. NECK: nad ABDOMEN: Soft, nontender. No mass palpable. slight tenderness, otherwise no guarding, no rigidity. LEGS: No edema. NERVOUS SYSTEM: Nonfocal. SKIN: No ulcers or rashes. JOINTS: No active deforming arthropathy. LABORATORY DATA: Reviewed. ASSESSMENT: 1. Upper back pain for evaluation. 2. Abnormal CT scan showing inflammation on the pancreatic head and uncinate process. 3. Newly enlarged lymph node in the right ureter, rule out malignancy. 4. Thrombocytopenia. 5. Atrial fibrillation. 6. Hypertension. 7. Gastroesophageal reflux disease. 8. Multiple medical issues. RECOMMENDATION: This is a 77-year-old woman who presented with multiple complex medical issues, we will monitor the patient closely. I would recommend Hematology/Oncology evaluation and symptomatic treatment of the pain. Exact etiology of the pain is undetermined at this time. Also recommend a bone scan, otherwise closely follow. The prognosis guarded because of multiple complex medical issues. Further recommendations to follow. MMODL / IJN: [id number] / SANTI
[2023-02-17] MEDS: HYDROmorphone 0.5 MG/0.5 ML SYRINGE IVP PRN ×2 (15:09→20:17)
[2023-02-17] MEDS ORDERED: WARFARIN 5 MG TAB PO SCH (17:15)
[2023-02-17] MEDS: FAMOTIDINE 20 MG TAB PO SCH (18:14)
[2023-02-17 19:37] LABS: INR 4.7 (<1.2); Prothrombin Time 46.6 sec (9.0-12.0)
--- NOTE | 2023-02-17 19:45 | P.CNOR ---
History of Present Illness - HPI Consult date: 02/17/23 Consult reason: low back pain History of present illness: The patient is a 77-year-old female with multiple medical problems who is seen and examined today bedside in regard to her low back pain. Patient says that she has had right-sided sciatica pain for more than 40 years. She gets around okay and managed at home but says that she was bending over 2 days ago to clean some milk off the floor and the next day had severe new left-sided low back pain. She says at her normal pain is on the right side and travels down her right leg. She has not had specific treatment for that past. She says that this new pain is what brought her to the hospital and is primarily at the left side of her lower back and toward her buttock on the left side. She says his does not really travel down her leg because to her left gluteus area and toward her left hip. She denies any fall or trauma. She denies any chest pain shortness breath. She denies any nausea or vomiting. She denies any problems at her left low back like this in the past. She says she normally takes tramadol for the past 40 years terms of her pain. She has not had specific treatment for her back with therapy or pain management. Should history of left femur fracture and subsequent surgery more than 20 years ago She lives alone and is normally a community ambulator without assistance. She normally drives. She says that over the past couple days she's been using a walker and was unbearable for her and had presented to the hospital. She denies any fevers chills. She denies any night sweats or unexpected weight loss. Review of Systems As per HPI. Denies any numbness tingling in her left lower extremity. Denies any new weakness of motion of his. Denies any bowel bladder changes. Denies any nausea vomiting. Denies any specific injury other than bending over and having pain next day her low back. Past Medical History Past Medical History: Atrial Fibrillation, Eye Disorder, GERD/Reflux, Hypertension, Osteoarthritis (OA), Thyroid Disorder Additional Past Medical History / Comment(s): POST MENOPAUSAL VAGINAL BLEEDING,MEDTRONIC PACEMAKER/DEFIBRILLATOR (2006), FX LEFT FEMUR (2008), VERTIGO, HX OF RHEUMATIC HEART DISEASE, CHRONIC SINUSITIS, IBS, PAIN IN BACK, RIGHT HIP AND KNEES,HEMORRHOIDS, CATARACTS History of Any Multi-Drug Resistant Organisms: None Reported Past Surgical History: AICD, Cholecystectomy, Orthopedic Surgery, Pacemaker Additional Past Surgical History / Comment(s): D & C. ORIF LT FEMUR,ARTIFICIAL MITRAL & AORTIC HEART VALVES (1978), PACEMAKER /AICD (2006) AND BATTERY CHANGE (2012). LT and RT EYE CATARACT REMOVED Past Anesthesia/Blood Transfusion Reactions: Motion Sickness, Postoperative Nausea & Vomiting (PONV) Type of Cardiac Device: Permanent Pacemaker, AICD Device Placement Date:: 2006 Smoking Status: Never smoker - Past Family History Father Family Medical History: Myocardial Infarction (VT) Brother(s) Family Medical History: Cancer Additional Family Medical History / Comment(s): PROSTATE CA Mother Family Medical History: Deep Vein Thrombosis (DVT), Osteoarthritis (OA) Additional Family Medical History / Comment(s): PARKINSON'S,SCHIZOPHRENIC Medications and Allergies Home Medications Medication Instructions Recorded Confirmed Type Dicyclomine [Bentyl] 10 mg PO TID@0900,1700,2100 02/01/14 02/17/23 History Furosemide [Lasix] 20 mg PO BID@0600,1200 02/01/14 02/17/23 History Levothyroxine Sodium [Synthroid] 50 mcg PO AC-BRKFST@0500 02/01/14 02/17/23 History Warfarin [Coumadin] 5 mg PO DIRECTED 02/01/14 02/17/23 History traMADol HCl [Ultram] 50 mg PO TID@0500,1200,2100 02/01/14 02/17/23 History Propranolol HCl 80 mg PO TID@0900,1700,2100 11/04/17 02/17/23 History Losartan Potassium 50 mg PO DAILY@1200 12/02/21 02/17/23 History Pantoprazole Sodium [Protonix] 40 mg PO DAILY@0600 12/02/21 02/17/23 History Famotidine 20 mg PO W/SUPPER 02/17/23 02/17/23 History Famotidine [Pepcid] 20 mg PO DAILY #12 tablet 02/17/23 Rx Multivitamin [Multivitamins Adult 2 tab PO DAILY 02/17/23 02/17/23 History Gummies] Potassium Chloride 10 meq PO DAILY@1200 02/17/23 02/17/23 History predniSONE [Deltasone] 20 mg PO DAILY #24 tab 02/17/23 Rx Allergies Allergy/AdvReac Type Severity Reaction Status Date / Time azithromycin Allergy Rash/Hives Verified 02/17/23 15:34 digoxin [From Lanoxin] Allergy Rapid Verified 02/17/23 15:34 Heart Rate Iodinated Contrast Media Allergy Wheezing Verified 02/17/23 15:34 [Iodinated Contrast Media - IV Dye] levofloxacin Allergy Rash/Hives Verified 02/17/23 15:34 erythromycin base AdvReac Unknown Diarrhea Verified 02/17/23 15:34 Physical Examination Osteopathic Statement: *. No significant issues noted on an osteopathic structural exam other than those noted in the History and Physical/Consult. - L Spine: dermatomal strength & reflexes bilateral Strength: hip flexion: 5/5 (Patient actually moves adequately. She is able get herself up out of bed and stand up. She needs a walker when she stands or tries to move as she is not comfortable with her balance. She has difficulty in her back with bending or extending.) Strength: hip extension: 5/5 (She is able to lift her legs up off the bed and has 5 over 5 strength with hip flexion the extension dorsally plantar flexion. She has some chronic stasis dermatitis at her lower extremities bilaterally. Sustained dorsal flexion plantar flexion) Strength: knee flexion: 5/5 (Her back is essentially clear there is no open wounds lacerations or abrasions or rashes. She is tender to palpation diffusely over her back in with very light palpation. There is no bruising there is no ecchymosis) Results - Labs Labs: Abnormal Lab Results - Last 24 Hours (Table) 02/16/23 02/16/23 02/16/23 Range/Units 21:53 21:53 23:12 Plt Count 115 L (150-450) k/uL Lymphocytes # 0.7 L (1.0-4.8) k/uL Sodium 136 L (137-145) mmol/L BUN 22 H (7-17) mg/dL Glucose 116 H (74-99) mg/dL AST 38 H (14-36) U/L Urine Appearance Cloudy H (Clear) Ur Specific Fries 1.040 H (1.001-1.035) Urine Protein 2+ H (Negative) Urine Ketones Trace H (Negative) Urine Blood Moderate H (Negative) Ur Leukocyte Esterase Moderate H (Negative) Urine WBC 35 H (0-5) /hpf Ur Squamous Epith Cells 20 H (0-4) /hpf Urine Bacteria Moderate H (None) /hpf H & H 02/16/23 Range/Units 21:53 Hgb 12.7 (11.4-16.0) gm/dL Hct 38.2 (34.0-46.0) % Result Diagrams: 02/16/23 21:53 02/16/23 21:53 - Diagnostic results CT Scan - lumbar: report reviewed (There is some facet arthrosis and degenerative disc disease. There is some foraminal encroachment throughout her lumbar spine without severe stenosis.), image reviewed (Imaging of her abdomen and pelvis is reviewed in terms of her spine. She has degenerative scoliosis particular at her upper lumbar spine around her thoracic lumbar junction. She has significant disc degeneration and some facet arthrosis. I do not see an obvious fracture. I do not see bony erosio) Assessment and Plan Assessment: Acute on chronic low back pain Exacerbation of lumbar spondylosis without evidence of neurologic injury or decline No evidence of new instability or fracture at her spine Intractable low back pain with difficulty cannulating Multiple medical issues Plan: Acute on chronic low back pain Exacerbation of lumbar spondylosis without evidence of neurologic injury or decline No evidence of new instability or fracture at her spine Intractable low back pain with difficulty cannulating Multiple medical issues The patient has acute on chronic low back pain and exacerbation of her lumbar spondylosis. She's not having neurologic decline or change in her bowel bladder function. I think it is okay for her to mobilize and she may do well with focused physical therapy for mobility and transfers ambulation and endurance and balance. We will order physical therapy for her. The patient has acute flareup and may do well with steroid medication to help settle down some the inflammation her low back. I'll go ahead and order IV steroid now and plan to convert her over to oral medications for discharge with a tapering oral steroid. She should try this if it is okay with medicine. She is continuing further treatment and workup in regards to findings on her abdominal CT. This was continued as per medicine. from a spine surgery standpoint we do not have any plans for any acute surgical intervention. It is okay for to mobilize and be treated on outpatient basis from an orthopedic spine standpoint. She could be seen on an outpatient basis with interventional pain management if her pain persists as she may be a candidate for epidural or facet injections with pain management service. she should continue her pain control as per her primary care physician.
[2023-02-17] MEDS: methylPREDNISolone SOD SUCCI 125 MG/2 ML VIAL IV SCH (20:21)
[2023-02-17] MEDS: traMADol 50 MG TAB PO SCH (20:22)
[2023-02-17] MEDS: DICYCLOMINE 10 MG CAP PO SCH (20:22)
[2023-02-17] MEDS: PROPRANOLOL 40 MG TAB PO SCH (20:23)
[2023-02-17] MEDS ORDERED: WARFARIN 0.5 MG TAB PO ONE (22:00)
[2023-02-18] MEDS: PANTOPRAZOLE 40 MG TABLET PO SCH (05:14)
[2023-02-18] MEDS: FUROSEMIDE 20 MG TAB PO SCH ×2 (05:14→11:59)
[2023-02-18] MEDS: LEVOTHYROXINE 50 MCG TAB PO SCH (05:14)
[2023-02-18] MEDS: traMADol 50 MG TAB PO SCH ×3 (05:15→21:54)
[2023-02-18] MEDS: KETOROLAC 15 MG/ML 1 ML VIAL IVP PRN ×3 (05:24→20:05)
[2023-02-18 07:49] LABS: INR 4.4 (<1.2); Prothrombin Time 43.6 sec (9.0-12.0)
[2023-02-18] MEDS: DICYCLOMINE 10 MG CAP PO SCH ×3 (09:45→20:06)
[2023-02-18] MEDS: LIDOCAINE 5% PATCH TOPICAL SCH (09:46)
[2023-02-18] MEDS: methylPREDNISolone SOD SUCCI 125 MG/2 ML VIAL IV SCH ×2 (09:46→12:53)
[2023-02-18] MEDS: MULTIVITAMINS, THERA 1 EACH TAB PO SCH (09:46)
[2023-02-18] MEDS: PROPRANOLOL 40 MG TAB PO SCH ×3 (09:47→21:54)
[2023-02-18] MEDS: LOSARTAN 50 MG TAB PO SCH (11:59)
[2023-02-18] MEDS: POTASSIUM CHLORIDE ER 10 MEQ TAB.ER.PRT PO SCH (11:59)
--- NOTE | 2023-02-18 12:19 | NM ---
EXAMINATION TYPE: NM bone scan whole body DATE OF EXAM: 02/18/2023 12:13 PM CLINICAL INDICATION:Female, 77 years old with history of mets? back pain; COMPARISON: CT 02/16/2023 TECHNIQUE: Intravenous administration 26.1 mCi Tc 99m MDP followed by multiple scintigraphic images o f the appendicular and axial skeleton. Images acquired 3 hours post injection. FINDINGS: No abnormal uptake is identified within the appendicular or axial skeleton to suggest metastatic dise ase. Mild scoliosis changes spine with degenerative uptake. There is increased uptake within the bilateral shoulder, sternoclavicular, and sacroiliac joints con sistent with degenerative changes. No other photopenic areas or areas of increased activity are ident ified. Physiologic radiotracer activity is demonstrated in the kidneys and bladder. IMPRESSION: No focal radiotracer activity to suggest metastatic disease.
[2023-02-18] MEDS: FAMOTIDINE 20 MG TAB PO SCH (12:53)
--- NOTE | 2023-02-18 12:59 | P.PN ---
Subjective This is a pleasant 77 years old female with multiple medical problems including chronic atrial fibrillation on blood thinner, hypertension, GERD, os teoarthritis, history of vertigo asymptomatic heart disease status post artificial involved with goal INR is 2.5-3.5. Patient takes Coumadin at home 2.5 Saturday through Saturday and 5 mg on Saturday and Saturday and she confirmed to me. Last time it was checked with her PCP on Saturday and her INR was 7.1, therefore patient was instructed to hold her Coumadin for 2 days and treated on Saturday however patient was in the hospital. Regarding her back pain it's showing improvement today for more than 10 at admission currently 7/10 which looks more tolerable. Patient denies weakness, numbness. Patient followed by orthopedic team and recommended conservative management and patient agrees with that. She denies any urinary signs or symptoms, no dysuria urgency hesitancy or other urinary symptoms. No suprapubic pain or tenderness. Abnormal urine analysis most likely representing asymptomatic bacteriuria and 20 to be treated for now with close monitoring. CT of the abdomen on admission showing no focal abnormal to suggest metastatic disease but there is mild inflammation of the pancreatic head and uncinate process. However lipase is normal at 75 of patient with upper abdominal pain or symptoms. I was suspicion of enlarged lymph node on the right ureter and oncologist was consulted. Bone scan showing no focal area to suggest metastatic disease. CT of the abdomen and pelvis ordered by oncology team to be repeated. We will give her normal saline 12 hours. Repeat her labs Active Medications Generic Name Dose Route Start Last Admin Trade Name Freq PRN Reason Stop Dose Admin Acetaminophen 650 mg 02/17/23 05:18 Acetaminophen Tab 325 Mg Tab PO Q6HR PRN Mild Pain or Fever > 100.5 Barium Sulfate 450 ml 02/18/23 12:26 Barium Sulfate 450 Ml Oral.Susp Bottle PO 02/19/23 12:[address] Scan Dicyclomine HCl 10 mg 02/17/23 21:00 02/18/23 09:45 Dicyclomine 10 Mg Cap PO 10 mg TID@0900,1700,2100 COLLEEN Administration Diphenhydramine HCl 50 mg 02/18/23 18:30 Diphenhydramine 50 Mg/Ml 1 Ml Vial IVP 02/18/23 18:31 ONCE ONE Famotidine 20 mg 02/17/23 17:30 02/18/23 12:53 Famotidine 20 Mg Tab PO Not Given W/SUPPER [facility] Famotidine 20 mg 02/18/23 18:30 Famotidine 20 Mg/2 Ml Vial IV 02/18/23 18:31 ONCE ONE Furosemide 20 mg 02/18/23 06:00 02/18/23 11:59 Furosemide 20 Mg Tab PO 20 mg BID@0600,1200 [facility] Administration Hydromorphone HCl 0.5 mg 02/17/23 05:18 02/17/23 20:17 Hydromorphone 0.5 Mg/0.5 Ml Syringe IVP 0.5 mg Q3HR PRN Administration Moderate Pain (Scale 4 to 6) Hydromorphone HCl 1 mg 02/17/23 05:18 02/18/23 01:26 Hydromorphone 1 Mg/Ml 1 Ml Syringe IVP 1 mg Q3HR PRN Administration Severe Pain (Scale 7 to 10) Sodium Chloride 1,000 mls @ 75 mls/hr 02/18/23 13:00 Saline 0.9% IV 02/19/23 01:01 .[id number] [facility] Ibuprofen 400 mg 02/17/23 05:18 Ibuprofen 400 Mg Tab PO Q6HR PRN Mild Pain or Fever > 100.5 Ketorolac Tromethamine 15 mg 02/17/23 05:18 02/18/23 12:03 Ketorolac 15 Mg/Ml 1 Ml Vial IVP 02/20/23 05:18 15 mg Q6HR PRN Administration Moderate Pain (Scale 4 to 6) Levothyroxine Sodium 50 mcg 02/18/23 05:00 02/18/23 05:14 Levothyroxine 50 Mcg Tab PO 50 mcg AC-BRKFST@0500 [facility] Administration Lidocaine 1 patch 02/17/23 09:00 02/18/23 09:46 Lidocaine 5% Patch TOPICAL Not Given DAILY [facility] Protocol Losartan Potassium 50 mg 02/18/23 12:00 02/18/23 11:59 Losartan 50 Mg Tab PO 50 mg DAILY@1200 [facility] Administration Methylprednisolone Sodium Succinate 60 mg 02/17/23 21:00 02/18/23 12:53 Methylprednisolone Sod Succi 125 Mg/2 Ml Vial IV Not Given Q12HR [facility] Methylprednisolone Sodium Succinate 60 mg 02/18/23 13:00 Methylprednisolone Sod Succi 125 Mg/2 Ml Vial IV 02/18/23 13:01 ONCE ONE Miscellaneous Information 0 each 02/17/23 18:10 Warfarin Per Pharmacy MISCELLANE DIRECTED PRN PER PHARMACY DOSING PROTOCOL Multivitamins 1 each 02/18/23 09:00 02/18/23 09:46 Multivitamins, Thera 1 Each Tab PO 1 each DAILY [facility] Administration Naloxone HCl 0.2 mg 02/17/23 05:18 Naloxone 0.4 Mg/Ml 1 Ml Vial IV Q2M PRN Opioid Reversal Ondansetron HCl 4 mg 02/17/23 05:18 Ondansetron 4 Mg/2 Ml Vial IVP Q8HR PRN Nausea And Vomiting Pantoprazole Sodium 40 mg 02/18/23 06:00 02/18/23 05:14 Pantoprazole 40 Mg Tablet PO 40 mg DAILY@0600 [facility] Administration Potassium Chloride 10 meq 02/18/23 12:00 02/18/23 11:59 Potassium Chloride Er 10 Meq Tab.Er.Prt PO 10 meq DAILY@1200 [facility] Administration Propranolol HCl 80 mg 02/17/23 21:00 02/18/23 09:47 Propranolol 40 Mg Tab PO 80 mg TID@0900,1700,2100 [facility] Administration Tramadol HCl 50 mg 02/17/23 21:00 02/18/23 11:58 Tramadol 50 Mg Tab PO Not Given TID@0500,1200,2100 [facility] Warfarin Sodium 0 mg 02/18/23 18:00 Warfarin 0.5 Mg Tab PO 02/18/23 18:01 ONCE@1800 ONE Objective - Vital Signs Vital signs: Vital Signs Temp 97.8 F 02/18/23 07:45 Pulse 70 02/18/23 11:58 Resp 19 02/18/23 07:45 BP 147/77 02/18/23 11:58 Pulse Ox 96 02/18/23 07:45 FiO2 Intake & Output 02/17/23 02/18/23 02/18/23 18:59 06:59 18:59 Weight 108.862 kg Other: Voiding Method Toilet # Voids 2 2 1 # Bowel Movements 1 - Exam GENERAL: The patient is alert and oriented x3, not in any acute distress. Well developed, well nourished. HEENT: Pupils are round and equally reacting to light. EOMI. No scleral icterus. No conjunctival pallor. Normocephalic, atraumatic. No pharyngeal erythema. No thyromegaly. CARDIOVASCULAR: S1 and S2 present. No murmurs, rubs, or gallops. PULMONARY: Chest is clear to auscultation, no wheezing , no crackles. ABDOMEN: Soft, nontender, nondistended, normoactive bowel sounds. No palpable organomegaly. MUSCULOSKELETAL: No joint swelling or deformity. EXTREMITIES: No cyanosis, clubbing, or pedal edema. NEUROLOGICAL: Gross neurological examination did not reveal any focal deficits. SKIN: No rashes. no petechiae. - Labs CBC & Chem 7: 02/16/23 21:53 02/16/23 21:53 Labs: Abnormal Lab Results - Last 24 Hours (Table) 02/17/23 02/18/23 Range/Units 18:53 07:00 PT 46.6 H 43.6 H (9.0-12.0) sec INR 4.7 H 4.4 H (<1.2) Assessment and Plan Assessment: Acute on chronic back pain secondary to lumbar spondylosis, followed by orthopedic team's recommended conservative management Coagulopathy secondary to Coumadin Right ureter lymphadenopathy History of artificial valve replacement on anticoagulation with goal INR 2.5- 3.5, confirmed this patient History of chronic atrial fibrillation on warfarin Hypertension Hypothyroidism History of GERD Plan: Continue with pain management and steroid per orthopedic team who recommended no surgical intervention, and patient agrees Oncology team also on the case to address lymphadenopathy of the abdomen. Repeat CT of the abdomen and pelvis is ordered by their team, continue with Gentle Hydration to Help Flush the Kidney \ Hold Coumadin and monitor INR c/w pain management Labs and medication were reviewed.. Continue same treatment. Continue with symptomatic treatment. Resume home medication. Monitor labs and vitals. DVT and GI prophylaxis. Further recommendations as per clinical course of the patient DVT prophylaxis: INR is supratherapeutic GI Prophylaxis: Pepcid PT/OT: Pending Prognosis is guarded
[2023-02-18] MEDS ORDERED: methylPREDNISolone SOD SUCCI 125 MG/2 ML VIAL IV ONE (13:00)
[2023-02-18] MEDS ORDERED: SODIUM CHLORIDE 0.9% 1,000 ML IV SCH (13:00)
[2023-02-18 13:27] LABS: Basophils # (A) 0 X 10*3/uL (0.00-0.10); Basophils % (A) 0 %; Eosinophils # (A) 0 X 10*3/uL (0.04-0.35); Eosinophils % (A) 0 %; HCT 38.7 % (37.2-46.3); HGB 12.6 d/dL (12.0-15.0); Lymphocytes # (A) 0.36 X 10*3/uL (0.90-5.00); Lymphocytes % (A) 6.4 %; MCH 32.1 pg (27.0-32.0); MCHC 32.6 d/dL (32.0-37.0); MCV 98.7 FL (80.0-97.0); Mean Platelet Volume 12.6 FL (9.5-12.2); Monocytes # (A) 0.22 X 10*3/uL (0.20-1.00); Monocytes % (A) 3.9 %; NRBC Per 100 WBC 0 X 10*3/uL (0.00-0.01); Neutrophils # (A) 4.99 X 10*3/uL (1.80-7.70); Neutrophils % (A) 89.2 %; Platelet Count 132 X 10*3/uL (140-440); RBC 3.92 X 10*6/uL (4.10-5.20)
[2023-02-18 14:07] LABS: Blood Urea Nitrogen 19.7 mg/dL (9.0-27.0); Carbon Dioxide 27.1 mmol/L (21.6-31.8); Chloride 101 mmol/L (96-109); Glucose 168 mg/dL (70-110); Potassium 4.5 mmol/L (3.5-5.5); Sodium 139 mmol/L (135-145)
[2023-02-18] MEDS: BARIUM SULFATE 450 ML ORAL.SUSP BOTTLE PO PRN ×2 (15:17→18:13)
--- NOTE | 2023-02-18 16:21 | P.CONS ---
History of Present Illness - Reason for Consult Consult date: 02/18/[address] Requesting physician: Perri Davies - Chief Complaint back pain - History of Present Illness Patient is a 77-year-old female the significant history of atrial fibrillation on Coumadin and hypertension. We were consulted for enlarged lymph node along the right ureter found on CT. Patient presented to the ER for left sided back pain and hip pain. Upon admission CT abdomen and pelvis revealed mild inflammation around the pancreatic head and uncinate process. An new enlarged lymph node along the right ureter. Lipase 73. AST mildly elevated at 38. Sedrick irubin normal. Blood count stable. WBC 5.6, hemoglobin 12.6, platelets 132,000. Patient denies any unintentional weight loss and night sweats. Denies personal history of cancer. Ortho has been consulted, with no plan for intervention at this time. Review of Systems 10 point ROS is negative except as stated in the HPI Past Medical History Past Medical History: Atrial Fibrillation, Eye Disorder, GERD/Reflux, Hypertension, Osteoarthritis (OA), Thyroid Disorder Additional Past Medical History / Comment(s): POST MENOPAUSAL VAGINAL BLEEDING,MEDTRONIC PACEMAKER/DEFIBRILLATOR (2006), FX LEFT FEMUR (2008), VERTIGO, HX OF RHEUMATIC HEART DISEASE, CHRONIC SINUSITIS, IBS, PAIN IN BACK, RIGHT HIP AND KNEES,HEMORRHOIDS, CATARACTS History of Any Multi-Drug Resistant Organisms: None Reported Past Surgical History: AICD, Cholecystectomy, Orthopedic Surgery, Pacemaker Additional Past Surgical History / Comment(s): D & C. ORIF LT FEMUR,ARTIFICIAL MITRAL & AORTIC HEART VALVES (1978), PACEMAKER /AICD (2006) AND BATTERY CHANGE (2012). LT and RT EYE CATARACT REMOVED Past Anesthesia/Blood Transfusion Reactions: Motion Sickness, Postoperative Nausea & Vomiting (PONV) Type of Cardiac Device: Permanent Pacemaker, AICD Device Placement Date:: 2006 Smoking Status: Never smoker - Past Family History Father Family Medical History: Myocardial Infarction ([place]) Brother(s) Family Medical History: Cancer Additional Family Medical History / Comment(s): PROSTATE CA Mother Family Medical History: Deep Vein Thrombosis (DVT), Osteoarthritis (OA) Additional Family Medical History / Comment(s): PARKINSON'S,SCHIZOPHRENIC Medications and Allergies Home Medications Medication Instructions Recorded Confirmed Type Dicyclomine [Bentyl] 10 mg PO TID@0900,1700,2100 02/01/14 02/17/23 History Furosemide [Lasix] 20 mg PO BID@0600,1200 02/01/14 02/17/23 History Levothyroxine Sodium [Synthroid] 50 mcg PO AC-BRKFST@0500 02/01/14 02/17/23 History Warfarin [Coumadin] 5 mg PO DIRECTED 02/01/14 02/17/23 History traMADol HCl [Ultram] 50 mg PO TID@0500,1200,2100 02/01/14 02/17/23 History Propranolol HCl 80 mg PO TID@0900,1700,2100 11/04/17 02/17/23 History Losartan Potassium 50 mg PO DAILY@1200 12/02/21 02/17/23 History Pantoprazole Sodium [Protonix] 40 mg PO DAILY@0600 12/02/21 02/17/23 History Famotidine 20 mg PO W/SUPPER 02/17/23 02/17/23 History Famotidine [Pepcid] 20 mg PO DAILY #12 tablet 02/17/23 Rx Multivitamin [Multivitamins Adult 2 tab PO DAILY 02/17/23 02/17/23 History Gummies] Potassium Chloride 10 meq PO DAILY@1200 02/17/23 02/17/23 History predniSONE [Deltasone] 20 mg PO DAILY #24 tab 02/17/23 Rx Allergies Allergy/AdvReac Type Severity Reaction Status Date / Time azithromycin Allergy Rash/Hives Verified 02/17/23 15:34 digoxin [From Lanoxin] Allergy Rapid Verified 02/17/23 15:34 Heart Rate Iodinated Contrast Media Allergy Wheezing Verified 02/17/23 15:34 [Iodinated Contrast Media - IV Dye] levofloxacin Allergy Rash/Hives Verified 02/17/23 15:34 erythromycin base AdvReac Unknown Diarrhea Verified 02/17/23 15:34 Physical Exam Vitals: Vital Signs Temp Pulse Resp BP Pulse Ox 02/18/23 14:31 98.6 F 61 18 143/75 94 L 02/18/23 11:58 70 147/77 02/18/23 07:45 97.8 F 66 19 127/66 96 02/18/23 02:20 98.0 F 60 19 112/70 93 L 02/17/23 20:00 97.6 F 64 16 103/53 98 Intake and Output 02/18/23 02/18/23 02/18/23 06:59 14:59 22:59 Other: Voiding Method Toilet # Voids 2 1 - Constitutional General appearance: average body habitus, no acute distress - EENT Eyes: anicteric sclerae, EOMI ENT: hearing grossly normal - Neck Neck: no lymphadenopathy - Respiratory Respiratory: bilateral: CTA - Cardiovascular Rhythm: regular Heart sounds: normal: S1, S2 Abnormal Heart Sounds: no systolic murmur, no diastolic murmur, no rub, no S3 Gallop, no S4 Gallop, no click, no other - Gastrointestinal General gastrointestinal: soft, no tenderness - Integumentary Integumentary: no cyanotic, no jaundiced - Neurologic grossly intact - Musculoskeletal decreased ROM of lower back Musculoskeletal: strength equal bilaterally - Psychiatric Psychiatric: A&O x's 3, appropriate affect, intact judgment & insight Results CBC & Chem 7: 02/18/23 07:00 02/18/23 07:00 Labs: Abnormal Lab Results - Last 24 Hours (Table) 02/17/23 02/18/23 02/18/23 Range/Units 18:53 07:00 07:00 RBC 3.92 L (4.10-5.20) X 10*6/uL MCV 98.7 H (80.0-97.0) FL MCH 32.1 H (27.0-32.0) pg Plt Count 132 L (140-440) X 10*3/uL MPV 12.6 H (9.5-12.2) FL Lymphocytes # 0.36 L (0.90-5.00) X 10*3/uL Eosinophils # 0 L (0.04-0.35) X 10*3/uL PT 46.6 H (9.0-12.0) sec INR 4.7 H (<1.2) Est GFR (CKD-EPI) 59 L (>=60) Glucose 168 H (70-110) mg/dL 02/18/23 Range/Units 07:00 RBC (4.10-5.20) X 10*6/uL MCV (80.0-97.0) FL MCH (27.0-32.0) pg Plt Count (140-440) X 10*3/uL MPV (9.5-12.2) FL Lymphocytes # (0.90-5.00) X 10*3/uL Eosinophils # (0.04-0.35) X 10*3/uL PT 43.6 H (9.0-12.0) sec INR 4.4 H (<1.2) Est GFR (CKD-EPI) (>=60) Glucose (70-110) mg/dL CT scan - abdomen: report reviewed CT scan - pelvis: report reviewed Assessment and Plan (1) Lymphadenopathy Current Visit: Yes Status: Acute Priority: Medium Code(s): R59.1 - GENERALIZED ENLARGED LYMPH NODES SNOMED Code(s): 50980229 (2) Intractable back pain Current Visit: Yes Status: Acute Priority: High Code(s): M54.9 - DORSALGIA, UNSPECIFIED SNOMED Code(s): 429520031 Plan: Intractable back pain: -Patient has been started on pain med regimen and IV steroids with improvement in pain -NM bone scan ordered by IM team -Defer to IM and ortho for management Lymphadenopathy: -Upon admission CT abdomen and pelvis revealed mild inflammation around the pancreatic head and uncinate process. An new enlarged lymph node along the right ureter. However, exam was done without contrast. Will order repeat CT AP with oral and IV contrast for more detailed imaging to r/o malignancy. Discussed findings and plan with patient. Further recommendations pending repeat CT scan. Due to history of iodine allergy will premedicate patient based on radiology protocol. Patient reports allergy was 40 years ago but reports it was not an anaphylactic reaction. Updated primary RN on medication administration attests: I have performed H&P and developed impression and plan of care for patient, discussed with dictator. I agree with dictated note, documented as a scribe
[2023-02-18] MEDS ORDERED: WARFARIN 0.5 MG TAB PO ONE (18:00)
[2023-02-18] MEDS ORDERED: FAMOTIDINE 20 MG/2 ML VIAL IV ONE (18:30)
[2023-02-18] MEDS ORDERED: diphenhydrAMINE 50 MG/ML 1 ML VIAL IVP ONE ×2 (18:30→20:00)
[2023-02-18] MEDS ORDERED: diphenhydrAMINE 50 MG/ML 1 ML VIAL IVP STA (19:38)
[2023-02-18] MEDS ORDERED: methylPREDNISolone SOD SUCCI 125 MG/2 ML VIAL IV PRN (19:51)
--- NOTE | 2023-02-18 22:25 | CT ---
EXAMINATION TYPE: CT abdomen pelvis w con DATE OF EXAM: 02/18/2023 COMPARISON: 02/16/2023 HISTORY: 77-year-old female abnormal lymphadenopathy of right ureter TECHNIQUE: Contiguous axial scanning of the abdomen and pelvis following administration of 80 ml Isov ue 300 IV contrast. Delayed images through the kidneys and coronal/sagittal reconstructions performe d. CT DLP: 2331.3 mGycm Automated exposure control for dose reduction was used. FINDINGS: Median sternotomy wires. Heart is enlarged without pericardial effusion. Prosthetic heart v keating. 3 AICD leads noted. Asymmetric elevation left hemidiaphragm. Some strandy bibasilar atelectasi s. No pleural effusion. No focal liver lesion. Portal venous system appears patent. Cholecystectomy clips. No biliary ductal dilatation. Adrenal glands, kidneys, spleen with hilar splenule appear within normal limits. There is breathing m otion artifact which limits the evaluation. There seems to be some residual mild strandy density in t he pancreatic head and uncinate process region that can be correlated with amylase and lipase levels to exclude acute interstitial pancreatitis as mentioned previously. Moderate atherosclerotic calcifications infrarenal abdominal aorta and iliac arteries. No excretion of contrast seen on the delayed kidney images. Correlate for acute kidney injury. As mentioned previously, there is a soft tissue nodule measuring 3.5 x 2.4 cm along the right lateral aspect of the proximal right ureter. The ureter seems to be separate from this structure is located just adjacent to it. Oral contrast progressed to the splenic flexure of the colon. There is moderate stool burden. No dilated small bowel, free fluid, or free air. No other mesenteric or retroperitoneal lymphadenopathy. Bladder nondistended. Uterus is anteverted. Small bilateral ovaries. No abnormal fluid collection in the pelvis or pelvic lymphadenopathy. Bone: Left hip screw fixation. Moderate to advanced multilevel spondylotic changes throughout the vis ualized lower thoracic and lumbar spine. IMPRESSION: 1. POSTCONTRAST EXAM CONFIRMS ABNORMAL 3.5 X 2.4 CM SOFT TISSUE MASS ALONG THE RIGHT LATERAL ASPECT O F THE UPPER THIRD RIGHT URETER. THIS SEEMS TO BE SEPARATE BUT LOCATED JUST ADJACENT TO THE URETER. NE OPLASTIC ETIOLOGY SHOULD BE EXCLUDED. CONSIDER FURTHER PET CT EVALUATION 2. NO EXCRETION OF CONTRAST FROM THE KIDNEYS ON THE DELAYED SERIES. Correlate with kidney function to exclude KATELYN. 3. There may be some residual fat stranding in the pancreatic head region versus motion artifact. Aga in as mentioned on the recent prior, correlate with amylase and lipase to exclude mild acute intersti tial pancreatitis.
[2023-02-19] MEDS: FUROSEMIDE 20 MG TAB PO SCH ×2 (06:02→12:09)
[2023-02-19] MEDS: LEVOTHYROXINE 50 MCG TAB PO SCH (06:02)
[2023-02-19] MEDS: KETOROLAC 15 MG/ML 1 ML VIAL IVP PRN ×2 (06:02→15:51)
[2023-02-19] MEDS: traMADol 50 MG TAB PO SCH ×2 (06:02→12:09)
[2023-02-19] MEDS: PANTOPRAZOLE 40 MG TABLET PO SCH (06:02)
[2023-02-19 07:12] VITALS: RESP 15
[2023-02-19 07:43] LABS: INR 3.4 (<1.2); Prothrombin Time 32.9 sec (9.0-12.0)
[2023-02-19] MEDS: methylPREDNISolone SOD SUCCI 125 MG/2 ML VIAL IV SCH (08:42)
[2023-02-19] MEDS: LIDOCAINE 5% PATCH TOPICAL SCH (09:47)
[2023-02-19] MEDS: DICYCLOMINE 10 MG CAP PO SCH (09:47)
[2023-02-19] MEDS: PROPRANOLOL 40 MG TAB PO SCH (09:48)
[2023-02-19] MEDS: MULTIVITAMINS, THERA 1 EACH TAB PO SCH (09:50)
[2023-02-19] MEDS: LOSARTAN 50 MG TAB PO SCH (12:09)
[2023-02-19] MEDS: POTASSIUM CHLORIDE ER 10 MEQ TAB.ER.PRT PO SCH (12:09)
[2023-02-19 13:31] VITALS: BP 112/70; PULSE 63; TEMP 98.4
--- NOTE | 2023-02-19 16:20 | P.PN ---
Subjective Progress Note Date: 02/19/23 Principal diagnosis: Intractable back pain In follow-up today patient reports that she is going to be going home. Reports back pain controlled at this time. Objective - Vital Signs Vital signs: Vital Signs Temp 98.4 F 02/19/23 13:31 Pulse 63 02/19/23 13:31 Resp 15 02/19/23 13:31 BP 112/70 02/19/23 13:31 Pulse Ox 94 L 02/19/23 13:31 FiO2 Intake & Output 02/18/23 02/19/23 02/19/23 18:59 06:59 18:59 Other: Voiding Method Toilet Toilet # Voids 2 3 1 - Constitutional General appearance: Present: cooperative, no acute distress, obese - EENT Eyes: Present: anicteric sclerae, EOMI ENT: Present: hearing grossly normal - Respiratory Details: Respirations even and unlabored at rest - Cardiovascular Details: Skin warm and dry to the touch, Radial pulse regular, 2+ - Peripheral edema leg Peripheral Edema: bilateral: None - Integumentary Integumentary: Present: normal - Neurologic Neurologic: Present: CNII-XII intact (Grossly) - Musculoskeletal Musculoskeletal: Present: generalized weakness - Psychiatric Psychiatric: Present: A&O x's 3, appropriate affect, intact judgment & insight - Labs CBC & Chem 7: 02/18/23 07:00 02/18/23 07:00 Labs: Abnormal Lab Results - Last 24 Hours (Table) 02/19/23 Range/Units 06:48 PT 32.9 H (9.0-12.0) sec INR 3.4 H (<1.2) Microbiology - Last 24 Hours (Table) 02/16/23 23:12 Urine Culture - Final Urine,Voided - Imaging and Cardiology CT scan - abdomen: report reviewed CT scan - pelvis: report reviewed Nuclear medicine bone scan report reviewed-No evidence to suggest metastatic disease Assessment and Plan (1) Intractable back pain Current Visit: Yes Status: Acute Priority: High Code(s): M54.9 - DORSALGIA, UNSPECIFIED SNOMED Code(s): 757917847 (2) Soft tissue mass Current Visit: Yes Status: Acute Priority: High Code(s): M79.89 - OTHER S PECIFIED SOFT TISSUE DISORDERS SNOMED Code(s): 555233725 (3) Warfarin-induced coagulopathy Current Visit: Yes Status: Acute Priority: High Code(s): D68.32 - HEMORRHAGIC DISORD D/T EXTRINSIC CIRCULATING ANTICOAGULANTS; T45.515A - ADVERSE EFFECT OF ANTICOAGULANTS, INITIAL ENCOUNTER SNOMED Code(s): 62589163 Plan: Intractable back pain -Patient states back pain is controlled on current analgesic regimen. Soft tissue mass adjacent to right ureter -CT AP with contrast confirms abnormal 3.5 x 2.4 cm soft tissue mass along the right lateral aspect of the upper third of the right ureter. Area around the pancreas is reported as some residual fat stranding and the head region versus motion artifact, correlate with amylase and lipase, both amylase and lipase for normal. -Discussed the case with interventional radiology nurse. Radiologist reviewed the case, feel that this is a rather deep spot to do percutaneously, almost 20 cm. Recommendation at this time is for a PET scan to see if there is something else for biopsy. If not, refer back for biopsy and they will work something out. -Patient is anticoagulated 2.5-3.5 INR because of heart valves, Defibrillator and A. fib. She is going to require bridging with Lovenox for any invasive procedure. Need to to have patient off anticoagulation for shortest timeframe as possible.
[2023-02-19] MEDS ORDERED: WARFARIN 2 MG TAB PO ONE (18:00)
[2023-02-19] MEDS ORDERED: WARFARIN 0.5 MG TAB PO ONE (18:00)
--- NOTE | 2023-02-19 22:41 | P.DS ---
Providers Date of admission: 02/19/23 09:01 Attending physician: Perri Davies Consults: 02/17/23 13:17 Consult Physician Routine Consulting Provider: Marianna Hogan Consult Reason/Comments: back pain Do you want consulting provider notified?: Yes 02/17/23 13:22 Consult Physician Routine Consulting Provider: Ivan Goldman Consult Reason/Comments: malignancy??LN rt ureter Do you want consulting provider notified?: Yes Primary care physician: Mauri Burkett [facility] Course: Diagnoses: Acute on chronic back pain secondary to lumbar spondylosis, followed by orthopedic team's recommended conservative management Coagulopathy secondary to Coumadin soft tissue mass (3.5 x 2.4 cm) along the right lateral aspect of the ureter Right ureter lymphadenopathy. History of artificial valve replacement on anticoagulation with goal INR 2.5- 3.5, confirmed this patient History of chronic atrial fibrillation on warfarin Hypertension Hypothyroidism History of GERD Hospital course: This is a pleasant 77 years old female with multiple medical problems including chronic atrial fibrillation on blood thinner, hypertension, GERD, osteoarthritis, history of vertigo asymptomatic heart disease status post artificial involved with goal INR is 2.5-3.5. Patient takes Coumadin at home 2.5 mg Saturday through Saturday and 5 mg on Saturday and Saturday and she confirmed to me. Last time it was checked with her PCP on Saturday and her INR was 7.1, therefore patient was instructed to hold her Coumadin for 2 days and treated on Saturday however patient was in the hospital. Regarding her back pain it's showing improvement today for more than 10/10 at admission currently more tolerable. And pain control is at goal. After patient developed by orthopedic Dr. Hogan, recommended conservative management, her symptoms improved , on IV Solu-Medrol 60 mg. Patient also on Coumadin for history of artificial heart valve. Her goal INR 2.5-3.5 and she confirms to me. Her INR improved down to 3.4 today, a smaller dose of 2 mg Provided for Her Today and Patient Will Check INR Tomorrow (patient has been INR kit and follow- up with PCP ) patient also found to have soft tissue mass of the abdomen cavity. Oncology team evaluated the patient. Repeat CT of the abdomen with IV and oral contrast showed 3.5 x 2.4 cm soft tissue mass along the right lateral aspect of the ureter about one third. This seems to be separate but located just adjacent to the ureter. Neoplastic etiology should be excluded. I discussed the case with Yasmeen from oncology team she told me she patient can be discharged home today and she'll follow up with Dr. Goldman. Patient has to be off Coumadin to obtain biopsy with prior team and she is going to discuss the case with them, otherwise Dr. Goldman team will transfer the patient to her level of care facility. Patient informed with the soft tissue mass and the possibility of cancer of the need for close follow-up with Dr. Goldman and she verbalized understanding and acceptance with the plan. Also she gave me verbal consent discussed the case with Dr. Burkett who kindly took note of these. Also patient was found to have them the specific mild inflammation of the pancreas a candidate and she might benefit from GI evaluation as an outpatient. Abdomen the patient was pleasant relaxed today feels fine and she was eager to go home. She denies any specific symptoms. Her back pain is controlled and she was seen walking in the room easily using her walker. Patient was cleared for discharge by all consultants including orthopedic team, hematology/oncology team. Patient will be discharged and tapered steroids per Orthopedic team. Problems and management plan were discussed with the patient and he verbalized understanding and acceptance Patient was found stable and can be discharged home in guarded prognosis however he needs follow-up as an outpatient. Patient was instructed to follow up with PCP Dr. Burkett within one week and patient agrees Patient instructed to follow up with Dr. Goldman in one week as above, with , from GI in 3-4 weeks and she agrees Patient was instructed to follow up with Dr. hogan in 1-2 weeks and she agrees Patient was to make her own appointments Physical exam Gen: patient is a AAOx3, no distress CVS: S1-S2, RRR, no murmur Lungs: B/L CTA, no wheezing Abdomen: soft, no distention, no tenderness, positive bowel sounds Extremity: no leg edema or induration Time spent more than 35 minutes Plan - Discharge Summary Discharge Rx Participant: No New Discharge Prescriptions: New Famotidine [Pepcid] 20 mg PO DAILY #12 tablet predniSONE [Deltasone] 20 mg PO DAILY #24 tab Continue traMADol HCl [Ultram] 50 mg PO TID@0500,1200,2100 Furosemide [Lasix] 20 mg PO BID@0600,1200 Dicyclomine [Bentyl] 10 mg PO TID@0900,1700,2100 Levothyroxine Sodium [Synthroid] 50 mcg PO AC-BRKFST@0500 Warfarin [Coumadin] 5 mg PO DIRECTED Propranolol HCl 80 mg PO TID@0900,1700,2100 Losartan Potassium 50 mg PO DAILY@1200 Famotidine 20 mg PO W/SUPPER Multivitamin [Multivitamins Adult Gummies] 2 tab PO DAILY Pantoprazole Sodium [Protonix] 40 mg PO DAILY@0600 Potassium Chloride 10 meq PO DAILY@1200 Discharge Medication List Dicyclomine [Bentyl] 10 mg PO TID@0900,1700,2100 02/01/14 [History] Furosemide [Lasix] 20 mg PO BID@0600,1200 02/01/14 [History] Levothyroxine Sodium [Synthroid] 50 mcg PO AC-BRKFST@0500 02/01/14 [History] Warfarin [Coumadin] 5 mg PO DIRECTED 02/01/14 [History] traMADol HCl [Ultram] 50 mg PO TID@0500,1200,2100 02/01/14 [History] Propranolol HCl 80 mg PO TID@0900,1700,2100 11/04/17 [History] Losartan Potassium 50 mg PO DAILY@1200 12/02/21 [History] Pantoprazole Sodium [Protonix] 40 mg PO DAILY@0600 12/02/21 [History] Famotidine 20 mg PO W/SUPPER 02/17/23 [History] Famotidine [Pepcid] 20 mg PO DAILY #12 tablet 02/17/23 [Rx] Multivitamin [Multivitamins Adult Gummies] 2 tab PO DAILY 02/17/23 [History] Potassium Chloride 10 meq PO DAILY@1200 02/17/23 [History] predniSONE [Deltasone] 20 mg PO DAILY #24 tab 02/17/23 [Rx] Follow up Appointment(s)/Referral(s): Ivan Goldman [STAFF PHYSICIAN] - 1 Week (we recommend to obtain tissue biopsy for your abdominal mass (risk for cancer) ) Marianna Hogan DO [Doctor of Osteopathic Medicine] - 1 Week (Patient may follow-up with Dr. Drew Hogan at [facility] in 2-3 weeks following discharge. ) Mauri Burkett DO [Primary Care Provider] - 1-2 days Aida Garner MD [STAFF PHYSICIAN] - 4 Weeks (for your mild inflammation of the pancreas) Activity/Diet/Wound Care/Special Instructions: heart healthy diet activity is restricted till you see your doctor we recommend you follow up with the oncologist (contact information is provided for you) for your right abdominal mass, you will need a tissue biopsy soon (we recommend in 1-2 weeks, if possible) Discharge Disposition: HOME WITH HOME HEALTH SERVICES
== END 2023-02-19 16:47 | disposition home health service (06) | DRG 552 ==
LOC: EC 19:38 → 4SSUR 02-17 06:08 → OBSVTOIN 02-19 09:01
PROVIDERS: ADMIT Hospitalist; ATTEND Hospitalist
DX: M47.816 Spondylosis without myelopathy or radiculopathy, lumbar region (principal); I48.20 Chronic atrial fibrillation, unspecified; I10 Essential (primary) hypertension; G89.29 Other chronic pain; E03.9 Hypothyroidism, unspecified; D69.6 Thrombocytopenia, unspecified; K21.9 Gastro-esophageal reflux disease without esophagitis; M54.30 Sciatica, unspecified side; R79.1 Abnormal coagulation profile; T45.515A Adverse effect of anticoagulants, initial encounter; Z79.01 Long term (current) use of anticoagulants; Z79.890 Hormone replacement therapy; Z79.899 Other long term (current) drug therapy; Z80.9 Family history of malignant neoplasm, unspecified; Z82.0 Family history of epilepsy and other diseases of the nervous system; Z82.49 Family history of ischemic heart disease and other diseases of the circulatory system; Z87.891 Personal history of nicotine dependence; Z95.2 Presence of prosthetic heart valve; Z88.1 Allergy status to other antibiotic agents; Z91.041 Radiographic dye allergy status
CPT/HCPCS: 36415; 74176; 74177; 78306; 80048; 80053; 81001; 82150; 83690; 85025; 85610; 87086

== ENCOUNTER → 2023-05-22 | Outpatient (CLI) | payer MEDICARE, BC ==
--- NOTE | 2023-05-22 12:02 | CT ---
EXAMINATION TYPE: CT abdomen pelvis wo con CT DLP: 1248.2 mGycm, Automated exposure control for dose reduction was used. DATE OF EXAM: 05/22/2023 11:22 AM COMPARISON: CT abdomen pelvis most recent from 02/18/2023. CLINICAL INDICATION:Female, 77 years old with history of R19.01 ABD MASS; RIGHT SIDE URETER MASS F/U, NO PAIN TECHNIQUE: Axial CT of the; CT abdomen pelvis wo con;Sagittal and coronal reformats were created on a separate workstation. Contrast used: None (none if empty) Oral contrast used: without Oral Contrast (none if empty) FINDINGS: LOWER CHEST: Cardiac conduction leads are present. Heart is mildly enlarged for size. Mitral valve re pair versus calcifications present. Aortic valve repair changes noted. ABDOMEN LIVER: Unremarkable GALLBLADDER AND BILE DUCTS: The gallbladder is surgically absent. PANCREAS: Unremarkable. SPLEEN: Unremarkable. ADRENAL GLANDS: Unremarkable. KIDNEYS AND URETERS: No evidence of hydronephrosis or renal calculus. The ureters are unremarkable. PELVIS BLADDER: Unremarkable REPRODUCTIVE: Unremarkable. ABDOMEN & PELVIS STOMACH AND BOWEL: No evidence of bowel obstruction. PERITONEUM/RETROPERITONEUM: No evidence of pneumoperitoneum or free fluid. VASCULATURE: Mild atherosclerotic calcifications are present throughout the abdominal aorta and its b ranches. No evidence of aortic aneurysm. MUSCULOSKELETAL: No acute osseous abnormalities, fixation hardware in the left hip which appears inta ct. Multilevel degeneration changes throughout the spine are moderate to severe with some mild scolio sis changes. LYMPH NODES: No gross evidence for lymphadenopathy. Retroperitoneal soft tissue measuring 23 x 20 mm , previously measuring 27 x 25 mm and closely approximates the right ureter. SOFT TISSUE/ABDOMINAL WALL: Fat-containing umbilical hernia. IMPRESSION: Redemonstration of soft tissue along the right ureter which may be fractionally smaller compared to . Etiology is uncertain. In the absence of biopsy continued surveillance is recommended.
== END | disposition home or self-care (01) ==
LOC: RADCTMAIN 10:37
PROVIDERS: ATTEND Internal Medicine Hematology & Oncology
DX: N28.89 Other specified disorders of kidney and ureter (principal); R19.01 Right upper quadrant abdominal swelling, mass and lump; E11.9 Type 2 diabetes mellitus without complications; I48.91 Unspecified atrial fibrillation; I10 Essential (primary) hypertension; E78.5 Hyperlipidemia, unspecified
CPT/HCPCS: 74176

== ENCOUNTER → 2023-08-29 | Outpatient (CLI) | payer MEDICARE, BC ==
[2023-08-29 13:03] LABS: African American GFR (CKD) 67 (>60 ml/min/1.73 sqM); Blood Urea Nitrogen 23 mg/dL (7-17); Non-African American GFR(CKD) 58 (>60 ml/min/1.73 sqM)
--- NOTE | 2023-08-29 14:33 | CT ---
EXAMINATION TYPE: CT abdomen pelvis w con CT DLP: 1666 mGycm, Automated exposure control for dose reduction was used. DATE OF EXAM: 08/29/2023 1:37 PM COMPARISON: 05/22/2023. CLINICAL INDICATION:Female, 77 years old with history of R9101 RIGHT UPPER QUADRANT MASS; right upper quadrant mass TECHNIQUE: Axial CT abdomen pelvis w con;Sagittal and coronal reformats were created on a separate w orkstation. Contrast used:100 mL of Isovue 300 with IV Contrast, (none if empty) Oral contrast used: with Oral Contrast (none if empty) FINDINGS: LOWER CHEST: Heart is enlarged for size. Cardiac conduction leads in the right ventricle and atrium. Mitral valve annular cusp patient's versus valvular repair changes. ABDOMEN LIVER: Unremarkable GALLBLADDER AND BILE DUCTS: Unremarkable. PANCREAS: Unremarkable. SPLEEN: Small splenule is present. ADRENAL GLANDS: Unremarkable. KIDNEYS AND URETERS: No evidence of hydronephrosis or renal calculus. Along the right ureter remains a soft tissue mass measuring 21.0 x 20.0 mm which is not significantly different from 05/22/2023. PELVIS BLADDER: Unremarkable REPRODUCTIVE: Unremarkable. ABDOMEN & PELVIS STOMACH AND BOWEL: No evidence of bowel obstruction. Scattered colonic diverticula. PERITONEUM/RETROPERITONEUM: No evidence of pneumoperitoneum or free fluid. VASCULATURE: Mild atherosclerotic calcifications are present throughout the abdominal aorta and its b ranches. No evidence of aortic aneurysm. MUSCULOSKELETAL: No acute osseous abnormalities, left hip fixation hardware appears intact. Moderate degeneration changes throughout the spine. LYMPH NODES: No gross evidence for lymphadenopathy. SOFT TISSUE/ABDOMINAL WALL: Fat-containing umbilical hernia. IMPRESSION: Stable size of right retroperitoneal mass near the right ureter. No new lymph nodes identified.
== END | disposition home or self-care (01) ==
LOC: RADCTMAIN 12:06
PROVIDERS: ATTEND Internal Medicine Hematology & Oncology
DX: R19.01 Right upper quadrant abdominal swelling, mass and lump (principal); I10 Essential (primary) hypertension; E11.9 Type 2 diabetes mellitus without complications; I48.91 Unspecified atrial fibrillation
CPT/HCPCS: 82565; 84520; 74177; Q9967

== ENCOUNTER 2023-10-28 11:02 | Emergency (ER) | payer MEDICARE, BC ==
--- NOTE | 2023-10-28 11:48 | ED ---
Back Pain HPI - General Chief Complaint: Back Pain/Injury Stated Complaint: Back pain Time Seen by Provider: 10/28/23 11:45 Source: patient, RN notes reviewed, old records reviewed Limitations: no limitations - History of Present Illness Initial Comments: This is a 77-year-old female to the ER for evaluation today. [place] for evaluation of back pain severe back pain chronic back pain with recent hospital admission for same. Patient does see pain control. Back pain was worse today with difficulty with ambulation MD Complaint: back pain -: days(s) Similar Symptoms Previously: Yes Place: home Radiation: none Severity: severe Quality: sharp Consistency: constant Improves With: none Worsens With: none Context: fall Associated Symptoms: denies other symptoms - Related Data Home Medications Medication Instructions Recorded Confirmed Dicyclomine [Bentyl] 10 mg PO TID@0900,1700,2100 02/01/14 02/17/23 Furosemide [Lasix] 20 mg PO BID@0600,1200 02/01/14 02/17/23 Levothyroxine Sodium [Synthroid] 50 mcg PO AC-BRKFST@0500 02/01/14 02/17/23 Warfarin [Coumadin] 5 mg PO DIRECTED 02/01/14 02/17/23 traMADol HCl [Ultram] 50 mg PO TID@0500,1200,2100 02/01/14 02/17/23 Propranolol HCl 80 mg PO TID@0900,1700,2100 11/04/17 02/17/23 Losartan Potassium 50 mg PO DAILY@1200 12/02/21 02/17/23 Pantoprazole Sodium [Protonix] 40 mg PO DAILY@0600 12/02/21 02/17/23 Famotidine 20 mg PO W/SUPPER 02/17/23 02/17/23 Multivitamin [Multivitamins Adult 2 tab PO DAILY 02/17/23 02/17/23 Gummies] Potassium Chloride 10 meq PO DAILY@1200 02/17/23 02/17/23 Previous Rx's Medication Instructions Recorded Famotidine [Pepcid] 20 mg PO DAILY #12 tablet 02/17/23 predniSONE [Deltasone] 20 mg PO DAILY #24 tab 02/17/23 Allergies Allergy/AdvReac Type Severity Reaction Status Date / Time azithromycin Allergy Rash/Hives Verified 04/08/24 11:23 digoxin [From Lanoxin] Allergy Rapid Verified 10/28/23 11:23 Heart Rate Iodinated Contrast Media Allergy Wheezing Verified 10/28/23 11:23 [Iodinated Contrast Media - IV Dye] levofloxacin Allergy Rash/Hives Verified 10/28/23 11:23 erythromycin base AdvReac Unknown Diarrhea Verified 10/28/23 11:23 diphenhydramine AdvReac Rapid Verified 10/28/23 11:23 [From Benadryl] Heart Rate Review of Systems ROS Statement: Those systems with pertinent positive or pertinent negative responses have been documented in the HPI. ROS Other: All systems not noted in ROS Statement are negative. Past Medical History Past Medical History: Atrial Fibrillation, Eye Disorder, GERD/Reflux, Hypertension, Osteoarthritis (OA), Thyroid Disorder Additional Past Medical History / Comment(s): POST MENOPAUSAL VAGINAL BLEEDING,MEDTRONIC PACEMAKER/DEFIBRILLATOR (2006), FX LEFT FEMUR (2008), VERTIGO, HX OF RHEUMATIC HEART DISEASE, CHRONIC SINUSITIS, IBS, PAIN IN BACK, RIGHT HIP AND KNEES,HEMORRHOIDS, CATARACTS History of Any Multi-Drug Resistant Organisms: None Reported Past Surgical History: AICD, Cholecystectomy, Orthopedic Surgery, Pacemaker Additional Past Surgical History / Comment(s): D & C. ORIF LT FEMUR,ARTIFICIAL MITRAL & AORTIC HEART VALVES (1978), PACEMAKER /AICD (2006) AND BATTERY CHANGE (2012). LT and RT EYE CATARACT REMOVED Past Anesthesia/Blood Transfusion Reactions: Motion Sickness, Postoperative Nausea & Vomiting (PONV) Type of Cardiac Device: Permanent Pacemaker, AICD Device Placement Date:: 2006 Past Psychological History: Anxiety Smoking Status: Never smoker Past Alcohol Use History: None Reported Past Drug Use History: None Reported - Past Family History Father Family Medical History: Myocardial Infarction (ID) Brother(s) Family Medical History: Cancer Additional Family Medical History / Comment(s): PROSTATE CA Mother Family Medical History: Deep Vein Thrombosis (DVT), Osteoarthritis (OA) Additional Family Medical History / Comment(s): PARKINSON'S,SCHIZOPHRENIC General Exam Limitations: no limitations General appearance: alert, in no apparent distress Head exam: Present: atraumatic, normocephalic, normal inspection Eye exam: Present: normal appearance, PERRL, EOMI. Absent: scleral icterus, conjunctival injection, periorbital swelling ENT exam: Present: normal exam, mucous membranes moist Neck exam: Present: normal inspection. Absent: tenderness, meningismus, lymphadenopathy Respiratory exam: Present: normal lung sounds bilaterally. Absent: respiratory distress, wheezes, rales, rhonchi, stridor Cardiovascular Exam: Present: regular rate, normal rhythm, normal heart sounds. Absent: systolic murmur, diastolic murmur, rubs, gallop, clicks GI/Abdominal exam: Present: soft, normal bowel sounds. Absent: distended, tenderness, guarding, rebound, rigid Extremities exam: Present: normal inspection, full ROM, normal capillary refill. Absent: tenderness, pedal edema, joint swelling, calf tenderness Back exam: Present: normal inspection Neurological exam: Present: alert, oriented X3, CN II-XII intact Psychiatric exam: Present: normal affect, normal mood Skin exam: Present: warm, dry, intact, normal color. Absent: rash Course Vital Signs 10/28/23 10/28/23 11:19 12:57 Temperature 97.8 F 98.5 F Pulse Rate 67 64 Respiratory 20 18 Rate Blood Pressure 130/83 103/63 O2 Sat by Pulse 98 97 Oximetry - Reevaluation(s) Reevaluation #1: 10/28/23 12:12 Records reviewed Reevaluation #2: 10/28/23 12:20 Patient symptoms improved Reevaluation #3: 10/28/23 12:20 Patient informed of results questions answered Reevaluation #4: Was pt. sent in by a medical professional or institution (, PA, CASH APPLICATIONS COORDINATOR, urgent care, hospital, or retirement...) When possible be specific @ -no Did you speak to anyone other than the patient for history (EMS, parent, family, police, friend...)? What history was obtained from this source @ -no Did you review nursing and triage notes (agree or disagree)? Why? @ -agree Are old charts reviewed (outside hosp., previous admission, EMS record, old EKG, old radiological studies, urgent care reports/EKG's, retirement records)? Report findings @ -yes Differential Diagnosis (chest pain, altered mental status, abdominal pain women, abdominal pain men, vaginal bleeding, weakness, fever, dyspnea, syncope, headache, dizziness, GI bleed, back pain, seizure, CVA, palpatations, mental health, musculoskeletal)? @ -prior EKG interpreted by me (3pts min.). @ -no X-rays interpreted by me (1pt min.). @ -no CT interpreted by me (1pt min.). @ -no U/S interpreted by me (1pt. min.). @ -no What testing was considered but not performed or refused? (CT, X-rays, U/S, labs)? Why? @ -none What meds were considered but not given or refused? Why? @ -none Did you discuss the management of the patient with other professionals (professionals i.e. , PA, CASH APPLICATIONS COORDINATOR, lab, RT, psych nurse, social sciences chair, office mover, teacher, operations officer trust department, case management social worker)? Give summary @ -no Was smoking cessation discussed for >3mins.? @ -no Was critical care preformed (if so, how long)? @ -no Were there social determinants of health that impacted care today? How? (Homelessness, low income, unemployed, alcoholism, drug addiction, transportat ion, low edu. Level, literacy, decrease access to med. care, skilled nursing, rehab)? @ -none Was there de-escalation of care discussed even if they declined (Discuss DNR or withdrawal of care, Hospice)? DNR status @ -no What co-morbidities impacted this encounter? (DM, HTN, Smoking, COPD, CAD, Cancer, CVA, ARF, Chemo, Hep., AIDS, mental health diagnosis, sleep apnea, morbid obesity)? @ -none Was patient admitted / discharged? Hospital course, mention meds given and route, prescriptions, significant lab abnormalities, going to OR and other pertinent info. @ - 77 female to ER for back pain severe back pain no traumatic injury. Patient's pain is controlled here in the ER and she can be discharged home Discharge Undiagnosed new problem with uncertain prognosis? @ -no Drug Therapy requiring intensive monitoring for toxicity (Heparin, Nitro, Insulin, Cardizem)? @ -no Were any procedures done? @ -no Diagnosis/symptom? @ -Acute on chronic back pain Acute, or Chronic, or Acute on Chronic? @ -Acute Uncomplicated (without systemic symptoms) or Complicated (systemic symptoms)? @ -Complicated Side effects of treatment? @ -no Exacerbation, Progression, or Severe Exacerbation? @ -exacerbation Poses a threat to life or bodily function? How? (Chest pain, USA, ID, pneumonia, PE, COPD, DKA, ARF, appy, cholecystitis, CVA, Diverticulitis, Homicidal, Suicidal, threat to staff... and all critical care pts) @ -yes extremes of age Reevaluation #5: Differential Back Pain: Strain, zoster, cauda equina syndrome, epidural abscess, vertebral osteomyelitis, discitis, fracture, subluxation, disc herniation, DJD, spinal stenosis, dissection, AAA, pancreatitis, peptic ulcer disease, pyelonephritis, kidney stone, this is not meant to be an all-inclusive list. Medical Decision Making - Medical Decision Making 77 female to ER for back pain severe back pain no traumatic injury. Patient's pain is controlled here in the ER and she can be discharged home Disposition Clinical Impression: Intractable back pain, Morbid obesity with BMI of 40.0-44.9, adult Disposition: HOME SELF-CARE Condition: Good Instructions (If sedation given, give patient instructions): Acute Low Back Pain (ED) Is patient prescribed a controlled substance at d/c from ED?: No Referrals: Mauri Burkett DO [Primary Care Provider] - 1-2 days Time of Disposition: 12:10
[2023-10-28] MEDS: ACETAMINOPHEN TAB 500 MG TAB PO STA (12:41)
[2023-10-28] MEDS: LIDOCAINE 4% PATCH TOPICAL STA (12:43)
[2023-10-28] MEDS: dexAMETHasone 2 MG TAB PO STA (12:43)
[2023-10-28] MEDS: ETODOLAC 400 MG TAB PO STA (12:44)
[2023-10-28] MEDS: HYDROmorphone 1 MG/ML 1 ML SYRINGE IM STA (12:47)
[2023-10-28 13:02] VITALS: BP 103/63; PULSE 64; RESP 18; TEMP 98.5
== END 2023-10-28 13:16 | disposition home or self-care (01) ==
LOC: EC 11:02
DX: M54.9 Dorsalgia, unspecified (principal); E66.01 Morbid (severe) obesity due to excess calories; Z88.6 Allergy status to analgesic agent; Z91.041 Radiographic dye allergy status; Z88.8 Allergy status to other drugs, medicaments and biological substances; Z68.41 Body mass index [BMI] 40.0-44.9, adult; Z88.1 Allergy status to other antibiotic agents; W19.XXXA Unspecified fall, initial encounter; Y92.009 Unspecified place in unspecified non-institutional (private) residence as the place of occurrence of the external cause
CPT/HCPCS: 99283; 96372; J1170; J8540

== ENCOUNTER → 2024-01-31 | Outpatient (CLI) | payer MEDICARE, BC ==
--- NOTE | 2024-01-31 19:04 | CT ---
EXAMINATION TYPE: CT abdomen pelvis wo con CT DLP: 1183 mGycm, Automated exposure control for dose reduction was used. DATE OF EXAM: 01/31/2024 1:37 PM COMPARISON: 08/29/2023 CLINICAL INDICATION:Female, 78 years old with history of R19.01 RIGHT UPPER QUADRANT ABDOMINAL SWELLI GALINA SALINAS; RUQ pain, abdominal mass TECHNIQUE: Axial CT abdomen pelvis wo con;Sagittal and coronal reformats were created on a separate workstation. Contrast used: mL of , (none if empty) Oral contrast used: with Oral Contrast (none if empty) FINDINGS: LOWER CHEST: Heart is enlarged for size. Mitral valve annular calcifications. Aortic valve repair diego nges. Cardiac conduction leads present. Elevated diaphragms bilaterally with associated atelectasis. ABDOMEN LIVER: Diffusely hypoattenuating parenchyma. GALLBLADDER AND BILE DUCTS: Unremarkable. PANCREAS: Unremarkable. SPLEEN: Unremarkable. ADRENAL GLANDS: Unremarkable. KIDNEYS AND URETERS: No evidence of hydronephrosis or renal calculus. The ureters are unremarkable. PELVIS BLADDER: Unremarkable REPRODUCTIVE: Unremarkable. ABDOMEN & PELVIS STOMACH AND BOWEL: No evidence of bowel obstruction. Large amount stool in the colon. The appendix is not visualized. PERITONEUM/RETROPERITONEUM: No evidence of pneumoperitoneum or free fluid. Decrease in size of abnorm al soft tissue near the right ureter measuring 21 x 21 mm previously 27 x 25 mm. VASCULATURE: No evidence of aortic aneurysm. MUSCULOSKELETAL: No acute osseous abnormalities LYMPH NODES: No gross evidence for lymphadenopathy. SOFT TISSUE/ABDOMINAL WALL: Unremarkable IMPRESSION: 1. No evidence for right upper quadrant pain 2. Patient's pain. 3. Cardiomegaly. 4. Mildly decreased size retroperitoneal lesion now measuring 21 x 21 previously 27 x 25 mm.
== END | disposition home or self-care (01) ==
LOC: RADCTMAIN 13:19
PROVIDERS: ATTEND Internal Medicine Hematology & Oncology
DX: R19.01 Right upper quadrant abdominal swelling, mass and lump (principal); E11.9 Type 2 diabetes mellitus without complications; I48.91 Unspecified atrial fibrillation; I10 Essential (primary) hypertension; I51.7 Cardiomegaly; K65.9 Peritonitis, unspecified
CPT/HCPCS: 74176

== ENCOUNTER → 2024-07-27 | Outpatient (CLI) | payer MEDICARE, BC ==
[2024-07-27 11:06] LABS: African American GFR (CKD) 60 (>60 ml/min/1.73 sqM); Blood Urea Nitrogen 21 mg/dL (7-17); Non-African American GFR(CKD) 52 (>60 ml/min/1.73 sqM)
--- NOTE | 2024-07-27 13:39 | CT ---
EXAMINATION TYPE: CT abdomen pelvis w con DATE OF EXAM: 07/27/2024 HISTORY: RUQ ABDOMINAL MASS. PRIOR ON PACS CT DLP: 2161.40mGycm Automated Exposure Control for Dose Reduction was Utilized. CONTRAST: CT scan of the abdomen and pelvis is performed with oral and with IV Contrast, patient injected with 80ml mL of Isovue 300. COMPARISON: Prior CT January 31, 2024 and older studies FINDINGS: LUNG BASES: Mild bibasilar linear scarring and/or atelectasis redemonstrated. Cardiomegaly redemonstr ated with moderate left atrial dilatation and surgical change in level of the mitral and aortic valve s. Right-sided pacemaker leads again seen. LIVER/GB: Cholecystectomy clips are redemonstrated. Liver remains diffusely low dense consistent with diffuse fatty infiltrative hepatocellular disease. PANCREAS: No significant abnormality is seen. SPLEEN: No significant abnormality is seen. ADRENALS: No significant abnormality is seen. KIDNEYS: No significant abnormality is seen. BOWEL: Oral contrast extends to level of proximal sigmoid colon. No abnormal small or large bowel dil atation. UTERUS/ADNEXA: No gross abnormality seen. LYMPH NODES: Lobulated soft tissue lesion along the course of the right ureter axial image 55 measure s 2.3 x 2.1 cm not significantly changed from most recent prior study. No additional or new greater t mcconnell 1 cm abdominal or pelvic lymph nodes OSSEOUS STRUCTURES: Surgical change to the left hip is redemonstrated. Transitional type vertebra lum bosacral junction redemonstrated. Levoconvex scoliosis centered at L2-L3 level is again seen. OTHER: Moderate calcified plaque of the aorta extends into branch vessels. IMPRESSION: Stable 2.3 x 2.1 cm soft tissue mass along course of the right mid ureter. No significant change from most recent prior CT. Correlate clinically. [facility], , 07/27/2024 1:37 PM
== END | disposition home or self-care (01) ==
LOC: RADCTMAIN 10:11
PROVIDERS: ATTEND Internal Medicine Hematology & Oncology
DX: R19.01 Right upper quadrant abdominal swelling, mass and lump (principal); I10 Essential (primary) hypertension; I48.91 Unspecified atrial fibrillation; E11.9 Type 2 diabetes mellitus without complications; Z90.49 Acquired absence of other specified parts of digestive tract; K76.89 Other specified diseases of liver
CPT/HCPCS: 82565; 84520; 74177; 36415; Q9967

== ENCOUNTER 2024-09-17 13:03 | Emergency (ER) | payer BC, MEDICARE ==
[2024-09-17 13:12] VITALS: RESP 18
--- NOTE | 2024-09-17 13:54 | ED ---
General Adult HPI - General Chief complaint: Extremity Injury, Lower Stated complaint: leg lac Time Seen by Provider: 09/17/24 13:53 Source: patient, EMS, RN notes reviewed Mode of arrival: EMS Limitations: no limitations - History of Present Illness Initial comments: Patient is a 78-year-old female presented to the ER via EMS for evaluation of left leg laceration. Patient reports she was getting out of her car and accidentally scraped her left calf against the edge of her car door. Patient reports she does take warfarin for atrial fibrillation and is having uncontrolled bleeding for the laceration. No paresthesias to extremity. Tetanus status unknown. No other injuries or complaints at this time. - Related Data Home Medications Medication Instructions Recorded Confirmed Dicyclomine [Bentyl] 10 mg PO TID@0900,1700,2100 02/01/14 02/17/23 Furosemide [Lasix] 20 mg PO BID@0600,1200 02/01/14 02/17/23 Levothyroxine Sodium [Synthroid] 50 mcg PO AC-BRKFST@0500 02/01/14 02/17/23 Warfarin [Coumadin] 5 mg PO DIRECTED 02/01/14 02/17/23 traMADol HCl [Ultram] 50 mg PO TID@0500,1200,2100 02/01/14 02/17/23 Propranolol HCl 80 mg PO TID@0900,1700,2100 11/04/17 02/17/23 Losartan Potassium 50 mg PO DAILY@1200 12/02/21 02/17/23 Pantoprazole Sodium [Protonix] 40 mg PO DAILY@0600 12/02/21 02/17/23 Famotidine 20 mg PO W/SUPPER 02/17/23 02/17/23 Multivitamin [Multivitamins Adult 2 tab PO DAILY 02/17/23 02/17/23 Gummies] Potassium Chloride 10 meq PO DAILY@1200 02/17/23 02/17/23 Previous Rx's Medication Instructions Recorded Famotidine [Pepcid] 20 mg PO DAILY #12 tablet 02/17/23 predniSONE [Deltasone] 20 mg PO DAILY #24 tab 02/17/23 Allergies Allergy/AdvReac Type Severity Reaction Status Date / Time azithromycin Allergy Rash/Hives Verified 09/17/24 13:13 digoxin [From Lanoxin] Allergy Rapid Verified 09/17/24 13:13 Heart Rate Iodinated Contrast Media Allergy Wheezing Verified 09/17/24 13:13 [Iodinated Contrast Media - IV Dye] levofloxacin Allergy Rash/Hives Verified 09/17/24 13:13 erythromycin base AdvReac Unknown Diarrhea Verified 09/17/24 13:13 diphenhydramine AdvReac Rapid Verified 09/17/24 13:13 [From Benadryl] Heart Rate Review of Systems ROS Statement: Those systems with pertinent positive or pertinent negative responses have been documented in the HPI. ROS Other: All systems not noted in ROS Statement are negative. Past Medical History Past Medical History: Atrial Fibrillation, Eye Disorder, GERD/Reflux, Hypertension, Osteoarthritis (OA), Thyroid Disorder Additional Past Medical History / Comment(s): POST MENOPAUSAL VAGINAL BLEEDING,MEDTRONIC PACEMAKER/DEFIBRILLATOR (2006), FX LEFT FEMUR (2008), VERTIGO, HX OF RHEUMATIC HEART DISEASE, CHRONIC SINUSITIS, IBS, PAIN IN BACK, RIGHT HIP AND KNEES,HEMORRHOIDS, CATARACTS History of Any Multi-Drug Resistant Organisms: None Reported Past Surgical History: AICD, Cholecystectomy, Orthopedic Surgery, Pacemaker Additional Past Surgical History / Comment(s): D & C. ORIF LT FEMUR,ARTIFICIAL MITRAL & AORTIC HEART VALVES (1978), PACEMAKER /AICD (2006) AND BATTERY CHANGE (2012). LT and RT EYE CATARACT REMOVED Past Anesthesia/Blood Transfusion Reactions: Motion Sickness, Postoperative Nausea & Vomiting (PONV) Type of Cardiac Device: Permanent Pacemaker, AICD Device Placement Date:: 2006 Past Psychological History: Anxiety Smoking Status: Never smoker Past Alcohol Use History: None Reported Past Drug Use History: None Reported - Past Family History Father Family Medical History: Myocardial Infarction (MA) Brother(s) Family Medical History: Cancer Additional Family Medical History / Comment(s): PROSTATE CA Mother Family Medical History: Deep Vein Thrombosis (DVT), Osteoarthritis (OA) Additional Family Medical History / Comment(s): PARKINSON'S,SCHIZOPHRENIC General Exam Limitations: no limitations General appearance: alert, in no apparent distress Respiratory exam: Present: normal lung sounds bilaterally. Absent: respiratory distress, wheezes, rales, rhonchi, stridor Cardiovascular Exam: Present: regular rate, irregular rhythm, normal heart sounds. Absent: systolic murmur, diastolic murmur, rubs, gallop, clicks Extremities exam: Present: normal inspection, full ROM, normal capillary refill (2+ left DP pulse). Absent: tenderness, pedal edema, joint swelling, calf tenderness Neurological exam: Present: alert, oriented X3, CN II-XII intact Skin exam: Present: warm, dry, intact, normal color, other (quarter sized skin tear to left lateral calf. mild bleeding noted.) Course Vital Signs 09/17/24 09/17/24 13:06 14:32 Temperature 97.7 F 98.0 F Pulse Rate 75 56 L Respiratory 18 18 Rate Blood Pressure 139/85 104/66 O2 Sat by Pulse 98 95 Oximetry Medical Decision Making - Medical Decision Making Was pt. sent in by a medical professional or institution (, PA, RAMPMAN, urgent care, hospital, or jail...) When possible be specific @ -No Did you speak to anyone other than the patient for history (EMS, parent, family, police, friend...)? What history was obtained from this source @ -No Did you review nursing and triage notes (agree or disagree)? Why? @ -I reviewed and agree with nursing and triage notes Were old charts reviewed (outside hosp., previous admission, EMS record, old EKG, old radiological studies, urgent care reports/EKG's, jail records)? Report findings @ -No old charts were reviewed Differential Diagnosis (chest pain, altered mental status, abdominal pain women, abdominal pain men, vaginal bleeding, weakness, fever, dyspnea, syncope, headache, dizziness, GI bleed, back pain, seizure, CVA, palpatations, mental health, musculoskeletal)? @ -Laceration, abrasion, contusion, avulsion, foreign body this list is not meant to be all-inclusive EKG interpreted by me (3pts min.). @ -None done X-rays interpreted by me (1pt min.). @ -None done CT interpreted by me (1pt min.). @ -None done U/S interpreted by me (1pt. min.). @ -None done What testing was considered but not performed or refused? (CT, X-rays, U/S, labs)? Why? @ -X-rays considered but not performed as there is no focal osseous tenderness, limited ROM, and patient is able to ambulate without difficulty. What meds were considered but not given or refused? Why? @ -None Did you discuss the management of the patient with other professionals (professionals i.e. DrTiburcio, PA, RAMPMAN, lab, RT, psych nurse, nephrology social worker, lan manager, teacher, employee service officer, rifle case repairer)? Give summary @ -No Was smoking cessation discussed for >3mins.? @ -No Was critical care preformed (if so, how long)? @ -No Were there social determinants of health that impacted care today? How? (Homelessness, low income, unemployed, alcoholism, drug addiction, transportation, low edu. Level, literacy, decrease access to med. care, skilled nursing, rehab)? @ -No Was there de-escalation of care discussed even if they declined (Discuss DNR or withdrawal of care, Hospice)? DNR status @ -No What co-morbidities impacted this encounter? (DM, HTN, Smoking, COPD, CAD, Cancer, CVA, ARF, Chemo, Hep., AIDS, mental health diagnosis, sleep apnea, morbid obesity)? @ -On Coumadin for atrial fibrillation Was patient admitted / discharged? Hospital course, mention meds given and route, prescriptions, significant lab abnormalities, going to OR and other pertinent info. @ -Discharge. 78-year-old female presented to the ER via EMS for evaluation of a leg laceration. Upon rooming, history and physical exam completed. Vitals within acceptable limits. Exam remarkable for a quarter sized skin tear noted to left lateral calf with mild bleeding noted. Patient is neurovascularly intact. Tetanus updated. Gelfoam placed on wound and compression dressing placed. Patient is stable for discharge at this time with close outpatient follow-up. I advised her to keep dressing in place for approximately 24 hours. Strict return parameters and wound care discussed. Patient discharged in stable condition with follow-up to PCP. Patient verbally expressed understanding agreement care plan. Case discussed with ED attending, Dr. Kunz. Undiagnosed new problem with uncertain prognosis? @ -No Drug Therapy requiring intensive monitoring for toxicity (Heparin, Nitro, Insulin, Cardizem)? @ -No Were any procedures done? @ -No Diagnosis/symptom? @ -Skin tear Acute, or Chronic, or Acute on Chronic? @ -Acute Uncomplicated (without systemic symptoms) or Complicated (systemic symptoms)? @ -Uncomplicated Side effects of treatment? @ -No Exacerbation, Progression, or Severe Exacerbation? @ -No Poses a threat to life or bodily function? How? (Chest pain, USA, MA, pneumonia, PE, COPD, DKA, ARF, appy, cholecystitis, CVA, Diverticulitis, Homicidal, Suicidal, threat to staff... and all critical care pts) @ -No Disposition Clinical Impression: Skin tear Disposition: HOME SELF-CARE Condition: Stable Instructions (If sedation given, give patient instructions): Skin Tear (ED) Additional Instructions: Keep dressing in place for at least 24 hours. Follow-up closely with PCP. Return to the ER for any new or worsening concerns. Is patient prescribed a controlled substance at d/c from ED?: No Referrals: Mauri Burkett DO [Primary Care Provider] - 1-2 days Time of Disposition: 13:54
[2024-09-17] MEDS: DIPH,PERTUS(ACELL)TETVAC-LF 0.5 ML VIAL IM ONE (14:15)
[2024-09-17 14:34] VITALS: BP 104/66; PULSE 56; TEMP 98
== END 2024-09-17 14:34 | disposition home or self-care (01) ==
LOC: EC 13:03
DX: L76.12 Accidental puncture and laceration of skin and subcutaneous tissue during other procedure (principal); I48.91 Unspecified atrial fibrillation; Z23 Encounter for immunization; V89.2XXA Person injured in unspecified motor-vehicle accident, traffic, initial encounter
CPT/HCPCS: 90471; 90715; 99283

== ENCOUNTER → 2025-01-14 | Outpatient (CLI) | payer MEDICARE ==
[2025-01-14 13:50] VITALS: BP 103/71; PULSE 79; RESP 18; TEMP 98.5
[2025-01-14] MEDS: DENOSUMAB 60 MG/ML 1 ML SYRINGE SQ NR (13:54)
== END ==
LOC: PROCWHC3 13:17
PROVIDERS: ATTEND Family Medicine
DX: M81.0 Age-related osteoporosis without current pathological fracture (principal)
CPT/HCPCS: 96372; J0897

== ENCOUNTER → 2025-02-16 | Outpatient (CLI) | payer MEDICARE, BC ==
[2025-02-16 13:08] LABS: African American GFR (CKD) 60 (>60 ml/min/1.73 sqM); Blood Urea Nitrogen 25 mg/dL (7-17); Non-African American GFR(CKD) 52 (>60 ml/min/1.73 sqM)
--- NOTE | 2025-02-16 13:50 | CT ---
EXAMINATION TYPE: CT abdomen pelvis w con DATE OF EXAM: 02/16/2025 COMPARISON: 07/27/2024 CLINICAL INDICATION: Female, 79 years old with history of R19.01 RIGHT UPPER QUADRANT ABDOMINAL SWELL CHRISTIAN, GALINA; PHH, RUQ SWELLING TECHNIQUE: Performed with Oral Contrast and with IV Contrast, patient injected with 100ml mL of Isovue 300. CT DLP: 1900.[address] CTDI: mGy Automated exposure control for dose reduction was used. FINDINGS: The lung bases are clear. There is surgical absence of the gallbladder. There is no biliary ductal dilatation. There is no focal mass or organomegaly involving the liver, pancreas, spleen or adrenal glands. There is no solid renal mass or hydronephrosis and there is homogeneous contrast enhancement of the r enal parenchyma. There is a stable 2.5 x 2.0 cm soft tissue mass in the region of the right ureter.. The caliber the a bdominal aorta is normal is no retroperitoneal adenopathy or hemorrhage. The bowel loops are normal in caliber and there is no evidence of dilatation or obstruction. No infla mmatory changes are identified in the bowel wall or mesentery. There is no free intraperitoneal air or fluid. No pelvic mass, free fluid, abscess or adenopathy. The osseous structures and soft tissues are intact. IMPRESSION: No change in the soft tissue mass along the course of the right mid ureter as described above. No new abnormality seen. [facility], , 02/16/2025 1:47 PM
== END | disposition home or self-care (01) ==
LOC: RADCTMAIN 12:10
PROVIDERS: ATTEND Internal Medicine Hematology & Oncology
DX: R19.01 Right upper quadrant abdominal swelling, mass and lump (principal); I10 Essential (primary) hypertension; E78.5 Hyperlipidemia, unspecified; I48.91 Unspecified atrial fibrillation; E11.9 Type 2 diabetes mellitus without complications; Z90.49 Acquired absence of other specified parts of digestive tract
CPT/HCPCS: 82565; 84520; 74177; 36415; Q9967